=== PATIENT | female | born 1955 | race Caucasian/White ===

== ENCOUNTER 2016-06-11 10:55 | Emergency (ER) | payer MEDICAID ==
[~2016-06-11] VITALS: Ht 142.2 cm; Wt 50.3 kg
[~2016-06-11 10:55] MED LIST: ASPI81CT89 PO; ATOR40TA PO; BENA5TAB13 PO; METF1000 PO; ONDA4TAB PO
[2016-06-11 11:00] VITALS: BP 120/72
--- NOTE | 2016-06-11 11:40 | NUR ---
PATIENT PRESENTS TO ED WITH C/O LEFT ANKLE PAIN SINCE LAST NIGHT, PT. STATES SHE TWISTED ANKLE; DENIES N/V/D; SKIN IS PINK/WARM/DRY; AAOX4 WITH EVEN AND STEADY GAIT; LUNGS CLEAR BL; HR EVEN AND REGULAR; PT DENIES ANY FEVER, CP, SOB, OR COUGH AT THIS TIME; PATIENT STATES PAIN OF 8/10 AT THIS TIME; VSS; PATIENT POSITIONED FOR COMFORT; HOB ELEVATED; BEDRAILS UP X2; BED DOWN. ER MD MADE AWARE OF PT STATUS.
--- NOTE | 2016-06-11 11:40 | NUR ---
Patient to bed 06.
--- NOTE | 2016-06-11 12:52 | NUR ---
Dr. Reddy evaluating patient at bedside.
[2016-06-11] MEDS ORDERED: oxyCODONE/APAP 5/325 MG 1 TAB TAB PO ONE (13:00)
[2016-06-11] MEDS ORDERED: IBUPROFEN 600 MG TAB PO ONE (13:00)
--- NOTE | 2016-06-11 13:15 | NUR ---
PT TAKEN OFF THE UNIT TO XRAY VIA GURNEY BY ATIYA SUERO
--- NOTE | 2016-06-11 13:49 | NUR ---
DR LANGLEY NOTIFIED OF BLOOD SUGAR OF 148
[2016-06-11] MEDS ORDERED: HYDROmorphone 1 MG/ML AMP IM SCH (14:20)
[2016-06-11] MEDS ORDERED: ONDANSETRON 4 MG ODT PO SCH (14:20)
--- NOTE | 2016-06-11 16:45 | NUR ---
IRON POURER NOTIFIED OF NEED OF BACK BRACE FOR PT PER DR LANGLEY PRIOR TO DISCHARGE
[2016-06-11 17:10] VITALS: BP 118/71
--- NOTE | 2016-06-11 17:10 | NUR ---
PER OK TO DC WITHOUT IMOBILIZER, INSTRUCTED TO SEE ORTHO TOMORROW
--- NOTE | 2016-06-11 17:10 | NUR ---
Patient discharged with v/s stable. Written and verbal after care instructions given and explained. Patient alert, oriented and verbalized understanding of instructions. Wheel Chair Assisted with to car. All questions addressed prior to discharge. ID band removed. Patient advised to follow up with PMD. Rx of DILAUDID, ZOFRAN given. Patient educated on indication of medication including possible reaction and side effects. Opportunity to ask questions provided and answered.
== END 2016-06-11 17:10 | disposition home or self-care (01) ==
LOC: MED 10:55
PROC: 3E033GC Introduction of Other Therapeutic Substance into Peripheral Vein, Percutaneous Approach (ICD-10-PCS; principal; 2016-06-11)
DX: S93.492A Sprain of other ligament of left ankle, initial encounter (principal); M48.56XA Collapsed vertebra, not elsewhere classified, lumbar region, initial encounter for fracture; W18.30XA Fall on same level, unspecified, initial encounter; Y92.89 Other specified places as the place of occurrence of the external cause; E11.9 Type 2 diabetes mellitus without complications; I10 Essential (primary) hypertension
CPT/HCPCS: 72110; 73610; 73630; 82948; 96372; 99284; J1170; S0119

== ENCOUNTER 2016-08-02 09:33 | Emergency (ER) | payer MEDICAID ==
[~2016-08-02] VITALS: Ht 147.3 cm; Wt 53.5 kg
[2016-08-02 09:44] VITALS: BP 131/77
[2016-08-02 11:04] LABS: BILIRUBIN,URINE NEGATIVE (NEGATIVE); BLOOD, URINE NEGATIVE (NEGATIVE); COLOR,URINE YELLOW (YELLOW); LEUKOCYTE ESTERASE ,URINE NEGATIVE (NEGATIVE); NITRITE, URINE NEGATIVE (NEGATIVE); PH,URINE 5.5 (5.0-9.0); PROTEIN,URINE NEGATIVE (NEGATIVE); UGLUCOSE NEGATIVE (NEGATIVE); UROBILINOGEN,URINE 0.2 EU/dL (0.2 - 1)
[2016-08-02 11:11] LABS: APPEARANCE,URINE HAZY (CLEAR)
[2016-08-02 11:12] LABS: BACTERIA,URINE 1+ /HPF (None Seen); RBC,URINE NONE SEEN /HPF (0-5); SQUAMOUS EPITHELIAL CELL,UR None Seen /LPF (0-3 (FEW)); WBC,URINE 0-5 (RARE) /HPF (0-5)
[2016-08-02] MEDS ORDERED: FAMOTIDINE 20 MG TAB PO ONE (11:45)
[2016-08-02] MEDS ORDERED: CYCLOBENZAPRINE 10 MG TAB PO ONE (11:45)
[2016-08-02] MEDS ORDERED: ONDANSETRON 4 MG ODT PO ONE (11:45)
[2016-08-02] MEDS ORDERED: predniSONE 20 MG TAB PO ONE (11:45)
[2016-08-02] MEDS ORDERED: SULFAMETH/TRIMETH DS 800/160MG 1 TAB PO ONE (11:45)
[2016-08-02 13:40] VITALS: BP 101/62
== END 2016-08-02 13:40 | disposition home or self-care (01) ==
LOC: MED 09:33
DX: S32.029A Unspecified fracture of second lumbar vertebra, initial encounter for closed fracture (principal); T39.395A Adverse effect of other nonsteroidal anti-inflammatory drugs [NSAID], initial encounter; N39.0 Urinary tract infection, site not specified; E11.9 Type 2 diabetes mellitus without complications; I10 Essential (primary) hypertension; Z79.82 Long term (current) use of aspirin; X58.XXXA Exposure to other specified factors, initial encounter; Y93.89 Activity, other specified; Y92.89 Other specified places as the place of occurrence of the external cause; Y99.8 Other external cause status
CPT/HCPCS: 72131; 81001; 81025; 87086; 99285; J7512; Q0163; S0119

== ENCOUNTER 2016-12-22 12:30 | Emergency (ER) | payer MEDICAID ==
[~2016-12-22] VITALS: Ht 147.3 cm; Wt 50.9 kg
[2016-12-22 12:45] VITALS: BP 129/83
[2016-12-22] MEDS ORDERED: BRIM5SOL1 OP (13:02)
[2016-12-22] MEDS ORDERED: GEMF600T8 PO (13:02)
[2016-12-22] MEDS ORDERED: TRAM50TA1 PO (13:02)
[2016-12-22] MEDS ORDERED: DOCU-299 PO (13:02)
[2016-12-22] MEDS ORDERED: GLIP10TE PO (13:02)
[2016-12-22] MEDS ORDERED: SUCR1TAB35 PO (13:02)
[2016-12-22] MEDS ORDERED: PANT40EC PO (13:02)
[2016-12-22] MEDS ORDERED: LORA10OD44 PO (13:02)
[2016-12-22] MEDS ORDERED: GABA-636 PO (13:02)
[2016-12-22] MEDS ORDERED: TIM.5OS OP (13:02)
[2016-12-22 13:51] LABS: BASOPHILS # (AUTO) 0.1 K/uL (0.00-0.22); BASOPHILS % (AUTO) 1.5 % (0.0-2.0); EOSINOPHILS # (AUTO) 0.2 K/uL (0-0.4); EOSINOPHILS % (AUTO) 3.1 % (0.0-4.0); HEMATOCRIT 40.5 % (36-48); HEMOGLOBIN 13.2 g/dL (12.0-16.0); LYMPHOCYTES # (AUTO) 1.5 K/uL (2.5-16.5); LYMPHOCYTES % (AUTO) 24.6 % (20.5-51.1); MEAN CORPUSCULAR HEMOGLOBIN 31 pg (27-31); MEAN CORPUSCULAR HGB CONC 33 g/dL (33-37); MEAN CORPUSCULAR VOLUME 96 fL (80-94); MONOCYTES # (AUTO) 0.3 K/uL (0.8-1.0); MONOCYTES % (AUTO) 4.2 % (1.7-9.3); NEUTROPHILS # (AUTO) 4.2 K/uL (1.8-7.7); NEUTROPHILS % (AUTO) 66.6 % (42.2-75.2); PLATELET COUNT (AUTO) 353 K/uL (140-450); RED BLOOD CELL COUNT(AUTO) 4.24 MIL/uL (4.20-5.40); RED CELL DISTRIBUTION WIDTH 12.2 % (11.6-13.7); WHITE BLOOD COUNT (AUTO) 6.3 K/uL (4.8-10.8)
[2016-12-22 14:03] LABS: APPEARANCE,URINE CLEAR (CLEAR); BILIRUBIN,URINE NEGATIVE (NEGATIVE); BLOOD, URINE NEGATIVE (NEGATIVE); COLOR,URINE YELLOW (YELLOW); LEUKOCYTE ESTERASE ,URINE NEGATIVE (NEGATIVE); NITRITE, URINE NEGATIVE (NEGATIVE); UGLUCOSE 3+ (NEGATIVE)
[2016-12-22 14:06] LABS: ALBUMIN 4.4 g/dL (3.4-5.0); ANION GAP 12.8 (8-16); CARBON DIOXIDE 29.3 mmol/L (21-32); POTASSIUM 4.1 mmol/L (3.5-5.1); TOTAL BILIRUBIN 0.3 mg/dL (0.0-1.0)
[2016-12-22] MEDS ORDERED: KETOROLAC 60 MG/2 ML VIAL IM ONE (15:15)
--- NOTE | 2016-12-22 15:15 | NUR ---
61F BIB SELF WITH C/O 10/10 RIGHT LOWER ABDOMINAL PAIN RADIATING RIGHT FLANK PAIN X 1 MONTH WITH FREQUENCY, BURNING PAIN UPON VOIDING; PT ALSO C/O N/V; PT DENIES ANY BLODD IN EMESIS; PT ALSO C/O THROAT PAIN X 1 MONTH; PT HAS FULL CLEAR SPEECH, NO DROOLING; PT ALSO C/O BODYACHES, CHILLS; PT ALSO C/O DULL ACHY PAIN "ALL OVER BODY"; SKIN IS PINK/WARM/DRY; AOX4 WITH EVEN AND STEADY GAIT; LUNGS CLEAR BL;RR ARE EVEN AND UNLABORED; VSS; PATIENT POSITIONED FOR COMFORT; HOB ELEVATED; BED DOWN. ER MD GONZALEZ BY BEDSIDE EXAMINING PT; WILL CONTINUE TO MONITOR
--- NOTE | 2016-12-22 16:32 | NUR ---
PATIENT RESTING WITH EYES CLOSED IN [facility]; [place]; [place]
[2016-12-22 17:00] VITALS: BP 111/77
--- NOTE | 2016-12-22 17:00 | NUR ---
Patient discharged with v/s stable. Written and verbal after care instructions given and explained. Patient alert, oriented and verbalized understanding of instructions. Ambulatory with steady gait. All questions addressed prior to discharge. ID band removed. Patient advised to follow up with PMD. Rx of [place] 5 and Prednisone given. Patient educated on indication of medication including possible reaction and side effects. Opportunity to ask questions provided and answered.
== END 2016-12-22 17:00 | disposition home or self-care (01) ==
LOC: MED 12:30
DX: J02.9 Acute pharyngitis, unspecified (principal); M79.1 Myalgia; R50.9 Fever, unspecified; R07.9 Chest pain, unspecified; R42 Dizziness and giddiness; M25.569 Pain in unspecified knee
CPT/HCPCS: 36415; 74176; 80053; 81003; 82948; 83690; 85025; 96372; 99285; J1885

== ENCOUNTER 2017-05-08 13:52 | Emergency (ER) | payer MEDICAID ==
[~2017-05-08] VITALS: Ht 142.2 cm; Wt 52.2 kg
[~2017-05-08 13:52] MED LIST changes: -ASPI81CT89 PO; +BRIM5SOL1 OP; +DOCU-299 PO; +GABA-636 PO; +GEMF600T8 PO; +GLIP10TE PO; +LORA10OD44 PO; -METF1000 PO; +PANT40EC PO; +SUCR1TAB35 PO; +TIM.5OS OP; +TRAM50TA1 PO
[2017-05-08 14:06] VITALS: BP 118/73
--- NOTE | 2017-05-08 14:12 | NUR ---
PT AA&OX4 WITH EVEN AND STEADY GAIT; PT TO LOBBY AWAITING OPEN BED.
--- NOTE | 2017-05-08 14:30 | NUR ---
Patient discharged with v/s stable. Written and verbal after care instructions given and explained. Patient alert, oriented and verbalized understanding of instructions. Ambulatory with steady gait. All questions addressed prior to discharge. ID band removed. Patient advised to follow up with PMD. Rx of AUGMENTIN AND PROMETHAZINE given. Patient educated on indication of medication including possible reaction and side effects. Opportunity to ask questions provided and answered.
--- NOTE | 2017-05-08 14:30 | NUR ---
PT TAKEN TO CHAIR B
[2017-05-08 14:49] VITALS: BP 118/73
== END 2017-05-08 14:41 | disposition home or self-care (01) ==
LOC: MED 13:52
DX: J20.9 Acute bronchitis, unspecified (principal); E11.9 Type 2 diabetes mellitus without complications; I10 Essential (primary) hypertension; Z88.8 Allergy status to other drugs, medicaments and biological substances
CPT/HCPCS: 99283

== ENCOUNTER 2017-08-11 13:44 | Emergency (ER) | payer MEDICAID ==
[~2017-08-11] VITALS: Ht 144.8 cm; Wt 53.1 kg
[2017-08-11 13:52] VITALS: BP 120/70
[2017-08-11] MEDS ORDERED: HYDROcodone/APAP 10/325 MG 1 TAB TAB PO STA (16:09)
[2017-08-11 17:49] VITALS: BP 101/60
== END 2017-08-11 17:34 | disposition home or self-care (01) ==
LOC: MED 13:44
DX: M62.838 Other muscle spasm (principal); M47.22 Other spondylosis with radiculopathy, cervical region; E11.9 Type 2 diabetes mellitus without complications; I10 Essential (primary) hypertension; M79.602 Pain in left arm; Z79.899 Other long term (current) drug therapy; Z88.8 Allergy status to other drugs, medicaments and biological substances
CPT/HCPCS: 72125; 73030; 99284; Q0092

== ENCOUNTER 2017-09-07 12:19 | Emergency (ER) | payer MEDICAID ==
[~2017-09-07] VITALS: Ht 144.8 cm; Wt 53.1 kg
[2017-09-07 12:52] VITALS: BP 133/75
--- NOTE | 2017-09-07 12:56 | NUR ---
PT SENT TO ER LOBBY TO WAIT FOR X-RAY.
--- NOTE | 2017-09-07 13:09 | NUR ---
PT TAKEN TO X-RAY VIA W/C.
--- NOTE | 2017-09-07 14:10 | NUR ---
pt to bed 12 at this time.
--- NOTE | 2017-09-07 14:13 | NUR ---
62 YO F BIB SELF W/ C/O RIGHT FOOT PAIN THAT BEGAN 1 WEEK AGO BUT IS WORSE TODAY. DENIES INJURY OR TRAUMA. CMS INTACT OF ALL EXTREMITIES. ROM INTCACT. PT REPORTS IT FEELS LIKE HER FOOT IS ASLEEP. REPORTS IT WAS A SUDDEN ONSET OF PAIN. AAOX4. GCS 15. CMS INTACT. RR EVEN AND UNLABORED. LUNGS BILATERALLY CLEAR. AND SOFT, NON-TENDER. ER MD JAMES NOTIFIED. PT NEEDS MET. SAFETY PRECAUTIONS IN PLACE. WILL CONTINUE TO MONITOR.
[2017-09-07] MEDS ORDERED: ACETAMINOPHEN EXTRA STRENGTH 500 MG TAB PO ONE (16:10)
[2017-09-07] MEDS ORDERED: DEXAMETHASONE 10 MG/ML VIAL IM ONE (16:10)
[2017-09-07 17:06] VITALS: BP 120/80
--- NOTE | 2017-09-07 17:06 | NUR ---
Patient discharged with v/s stable. Written and verbal after care instructions given and explained. Patient alert, oriented and verbalized understanding of instructions. Patient wheel chair assisted to lobby. All questions addressed prior to discharge. ID band removed. Patient advised to follow up with PMD. X-ray report provided to patient for follow up. Rx of Gabapentin 300mg and Acetaminophen 500mg given. Patient educated on indication of medication including possible reaction and side effects. Opportunity to ask questions provided and answered.
== END 2017-09-07 17:06 | disposition home or self-care (01) ==
LOC: MED 12:19
DX: M77.9 Enthesopathy, unspecified (principal); M79.671 Pain in right foot; E11.9 Type 2 diabetes mellitus without complications; K21.9 Gastro-esophageal reflux disease without esophagitis; I10 Essential (primary) hypertension; Z79.84 Long term (current) use of oral hypoglycemic drugs; Z79.899 Other long term (current) drug therapy; Z88.8 Allergy status to other drugs, medicaments and biological substances
CPT/HCPCS: 73630; 96372; 99284; J1100

== ENCOUNTER 2017-11-14 13:14 | Emergency (ER) | payer MEDICAID ==
[~2017-11-14] VITALS: Ht 149.9 cm; Wt 47.6 kg
[2017-11-14 13:29] VITALS: BP 123/80
--- NOTE | 2017-11-14 13:33 | NUR ---
PT AMBULATES TO BED 7
--- NOTE | 2017-11-14 13:41 | NUR ---
Note undone in EDM - 11/14/17 at 1347 by RIOS PT BIB BY SELF. PATIENT PRESENTS TO ED WITH NECK PAIN . PT STATES PAIN STATED 1 MONTH AGO . DENIES N/V/D; SKIN IS PINK/WARM/DRY; AAOX4 WITH EVEN AND STEADY GAIT; LUNGS CLEAR BL; HR EVEN AND REGULAR; PT DENIES ANY FEVER, SOB, OR COUGH AT THIS TIME; PATIENT STATES PAIN OF 10/10 AT THIS TIME; VSS; PATIENT POSITIONED FOR COMFORT; HOB ELEVATED; BEDRAILS UP X2; BED DOWN. ER MADE AWARE OF PT STATUS.
--- NOTE | 2017-11-14 13:46 | NUR ---
PT BIB BY DAUGHTER, DAUGHTER JUST DROPPED HER OFF. PATIENT PRESENTS TO ED WITH NECK PAIN . PT STATES PAIN STATED 1 MONTH AGO . STATES NAUSEA AT THIS TIME; SKIN IS PINK/WARM/DRY; AAOX4 WITH EVEN AND STEADY GAIT; LUNGS CLEAR BL; HR EVEN AND REGULAR; PT DENIES ANY FEVER, SOB, OR COUGH AT THIS TIME; PATIENT STATES PAIN OF 10/10 AT THIS TIME; VSS; PATIENT POSITIONED FOR COMFORT; HOB ELEVATED; BEDRAILS UP X2; BED DOWN. PATIENT STATES HISTORY OF ARTHRITIS, OSTEOPOROSIS, FRIBROMYALGIA, AND BACK DISABILITY. ER MD MADE AWARE OF PT STATUS.
[2017-11-14] MEDS ORDERED: MORPHINE SULFATE 4 MG/ML SYR IM ONE (15:00)
[2017-11-14 15:13] VITALS: BP 131/80
== END 2017-11-14 15:13 | disposition home or self-care (01) ==
LOC: MED 13:14
DX: M54.2 Cervicalgia (principal); K21.9 Gastro-esophageal reflux disease without esophagitis; E11.9 Type 2 diabetes mellitus without complications; I10 Essential (primary) hypertension; Z88.8 Allergy status to other drugs, medicaments and biological substances; Z79.899 Other long term (current) drug therapy
CPT/HCPCS: 96372; 99283; J2270

== ENCOUNTER 2018-02-16 14:08 | Inpatient (IN) | payer MEDICAID ==
[~2018-02-16] VITALS: Ht 139.7 cm; Wt 54.0 kg
[~2018-02-16 14:08] MED LIST changes: -GEMF600T8 PO; +GEMF600T9 PO
--- NOTE | 2018-02-16 14:22 | NUR ---
Tayla rico in [facility] - 02/16/18 at 1423 by MEDHT PT AMBULATES TO BED 6
[2018-02-16 14:30] VITALS: BP 125/75
--- NOTE | 2018-02-16 14:36 | NUR ---
PT AMBULATED TO BED 10
--- NOTE | 2018-02-16 14:36 | NUR ---
AAO, GREEK SPEAKING ONLY PT C/O PAIN ON LT FLANK, LT KNEE, STUBBS AND A LITTLE DIZZINESS S/P MECHANICAL FALL FROM 5 STAIRS TODAY ONTO KNEES, NO LOC. DENIES OTHER COMPLAINTS. STATES IT WAS A MECHANICAL FALL. 12/03 PAIN. HX---HTN, DM, ARTHRITIS, HTN, OSTEOARTHRITIS
[2018-02-16] MEDS ORDERED: KETOROLAC 60 MG/2 ML VIAL IM ONE (15:15)
--- NOTE | 2018-02-16 15:25 | NUR ---
PT TAKEN OFF THE UNIT VIA WHEEL CHAIR FOR XRAY
[2018-02-16] MEDS ORDERED: NACL 0.9% 1,000 ML IV ONE (16:20)
[2018-02-16] MEDS ORDERED: MORPHINE SULFATE 4 MG/ML SYR IVP ONE ×2 (16:20→17:45)
[2018-02-16 16:36] LABS: BASOPHILS % (AUTO) 0.2 % (0.0-2.0); EOSINOPHILS # (AUTO) 0.2 K/uL (0-0.4); EOSINOPHILS % (AUTO) 3.9 % (0.0-4.0); HEMATOCRIT 38.4 % (36-48); HEMOGLOBIN 12.9 g/dL (12.0-16.0); LYMPHOCYTES # (AUTO) 2.2 K/uL (2.5-16.5); LYMPHOCYTES % (AUTO) 35.4 % (20.5-51.1); MEAN CORPUSCULAR HEMOGLOBIN 31 pg (27-31); MEAN CORPUSCULAR HGB CONC 34 g/dL (33-37); MEAN CORPUSCULAR VOLUME 93.3 fL (80-94); MONOCYTES # (AUTO) 0.4 K/uL (0.8-1.0); MONOCYTES % (AUTO) 6.2 % (1.7-9.3); NEUTROPHILS # (AUTO) 3.4 K/uL (1.8-7.7); NEUTROPHILS % (AUTO) 54.3 % (42.2-75.2); PLATELET COUNT (AUTO) 272 K/uL (140-450); RED BLOOD CELL COUNT(AUTO) 4.12 MIL/uL (4.20-5.40); RED CELL DISTRIBUTION WIDTH 14.8 % (11.6-13.7); WHITE BLOOD COUNT (AUTO) 6.3 K/uL (4.8-10.8)
--- NOTE | 2018-02-16 16:36 | NUR ---
PT TAKEN TO CT VIA MARICARMEN
[2018-02-16 16:48] LABS: ANION GAP 15.3 (8-16); CARBON DIOXIDE 26.5 mmol/L (21-32); POTASSIUM 3.8 mmol/L (3.5-5.1)
[2018-02-16 16:56] LABS: ALBUMIN 4.1 g/dL (3.4-5.0); TOTAL BILIRUBIN 0.3 mg/dL (0.0-1.0)
--- NOTE | 2018-02-16 17:13 | NUR ---
PT RETURNED FROM CT
--- NOTE | 2018-02-16 18:29 | NUR ---
pt wheel chair assisted to the restroom
--- NOTE | 2018-02-16 18:38 | NUR ---
aao pt wheel chair assisted back to bed 10; place back on monitor
[2018-02-16] MEDS ORDERED: ONDANSETRON 4 MG/2 ML VIAL IM/IVP PRN (18:55)
[2018-02-16] MEDS ORDERED: ACETAMINOPHEN 325 MG TAB PO PRN (18:55)
[2018-02-16] MEDS ORDERED: HYDROcodone/APAP 7.5/325 MG 1 TAB PO PRN (18:55)
[2018-02-16] MEDS ORDERED: CYCLOBENZAPRINE 10 MG TAB PO ONE (19:10)
[2018-02-16 19:25] VITALS: BP 119/86
--- NOTE | 2018-02-16 19:25 | NUR ---
PT ARRIVED ON UNIT BY WHEELCHAIR. RECEIVED REPORT FROM ER NURSE HIPOLITO-RN AT BEDSIDE. PT AOX4-LATVIAN SPEAKING, ON ROOM AIR WITH IV SITE ON LEFT AC #20G RUNNING NS @100ML/HR. S/P FALL 02/15- HAS BILATERAL REDNESS ON KNEES AND GONZALEZ. PT AMBULATORY WITH CANE AT BASELINE. DISCUSSED PLAN OF CARE AND PT VERBALIZED UNDERSTANDING. VITAL SIGNS TAKEN AND MRSA SWAB COLLECTED. BLOOD GLUCOSE 118-NO INSULIN COVERAGE NEEDED. NO S/S OF RESPIRATORY DISTRESS OR DISCOMFORT NOTED AT THIS TIME. BED IN LOWEST POSITION, BED BREAKS ON, BOTH SIDE RAILS UP AND FALL PRECAUTIONS IN PLACE. BEDSIDE TABLE AND CALL LIGHT ARE WITHIN REACH. WILL CONTINUE TO MONITOR.
--- NOTE | 2018-02-16 19:29 | NUR ---
Patient will be admitted to care of Dr Byrne. Admited to M/S room 107a. Belongings list completed. Report to REINA Schuler.
[2018-02-16] MEDS ORDERED: METF500T PO (19:34)
[2018-02-16 19:37] LABS: PROTHROMBIN TIME 9.4 secs (10.8-13.4)
[2018-02-16 19:40] LABS: APPEARANCE,URINE CLEAR (CLEAR); BILIRUBIN,URINE NEGATIVE (NEGATIVE); BLOOD, URINE NEGATIVE (NEGATIVE); COLOR,URINE YELLOW (YELLOW); LEUKOCYTE ESTERASE ,URINE NEGATIVE (NEGATIVE); NITRITE, URINE NEGATIVE (NEGATIVE); UGLUCOSE >=1000 (NEGATIVE)
[2018-02-16] MEDS: NACL 0.9% 1,000 ML IV SCH (19:40)
[2018-02-16] MEDS ORDERED: DEXTROSE 50% 50 ML SYR IVP PRN (19:45)
[2018-02-16] MEDS ORDERED: INSULIN LISPRO SLIDING SCALE 100 UNITS/ML VIAL SUBQ PRN (19:45)
[2018-02-16 19:48] LABS: FREE T4 (FREE THYROXINE) 1.01 ng/dL (0.76-1.46); MAGNESIUM 1.6 mg/dL (1.8-2.4); PHOSPHORUS 2.9 mg/dL (2.5-4.9); THYROID STIMULATING HORMONE 0.91 uIU/mL (0.34-3.74)
[2018-02-16] MEDS: GEMFIBROZIL 600 MG TAB PO SCH (20:20)
[2018-02-16] MEDS: BLOOD GLUCOSE MONITORING 1 DEV DEV FS SCH (20:21)
[2018-02-16] MEDS: metFORMIN 500 MG TAB PO SCH (20:21)
--- NOTE | 2018-02-16 20:21 | NUR ---
SCHEDULED MEDICATION GIVEN AND TOLERATED WELL. TIMOPTIC OP AND GLUCOTROL XI NOT GIVEN DUE TO NOT BEING AVAILABLE ON UNIT. CHARGE NURSE NOE AND DR. VALENZUELA AWARE. ULTRAM NOT GIVEN DUE TO D/C. PT STATED SHE TAKES TYLENOL WITH CODEINE- DR. VALENZUELA AWARE AND WILL PLACE ORDER FOR TYLENOL #3. NO S/S OF RESPIRATORY DISTRESS OR DISCOMFORT NOTED AT THIS TIME. WILL CONTINUE TO MONITOR.
[2018-02-16] MEDS ORDERED: ACET1TAB93 PO (20:25)
[2018-02-16] MEDS ORDERED: MAGNESIUM OXIDE 400 MG TAB PO ONE (20:45)
[2018-02-16] MEDS ORDERED: NON-FORMULARY ITEM (Brimonidine Tartrate* (Alphagan P 0.15% Opth Soln*) 1 DROP) OP SCH (21:00)
[2018-02-16] MEDS: glipiZIDE ER 5 MG TABER PO SCH (21:00)
[2018-02-16] MEDS ORDERED: ATORVASTATIN 20 MG TAB PO SCH (21:00)
[2018-02-16] MEDS ORDERED: traMADol 50 MG TAB PO SCH (21:00)
[2018-02-16] MEDS: TIMOLOL OP 0.5% 5 ML BTL OP SCH (21:00)
[2018-02-16] MEDS ORDERED: TIMOLOL OP 0.5% 5 ML BTL OP SCH (21:00)
[2018-02-16] MEDS: ACETAMINOPHEN/CODEINE 300/30MG 1 TAB PO PRN (21:36)
--- NOTE | 2018-02-16 21:36 | NUR ---
MAG-OX GIVEN FOR LOW MAGNESIUM LAB AND TYLENOL #3 GIVEN FOR PAIN. PT TOLERATED WELL. NO S/S OF RESPIRATORY DISTRESS OR DISCOMFORT NOTED AT THIS TIME. WILL CONTINUE TO MONITOR.
--- NOTE | 2018-02-16 23:00 | NUR ---
PT SLEEPING IN BED. NO S/S OF RESPIRATORY DISTRESS OR DISCOMFORT NOTED AT THIS TIME. WILL CONTINUE TO MONITOR.
[2018-02-16] MEDS ORDERED: INFLUENZA VIRUS VACCINE QUAD 0.5 ML SYR IMVAC PRN (23:40)
[2018-02-17] VITALS: BP 103/61
[2018-02-17] MEDS ORDERED: KETOROLAC 15 MG/ML VIAL IVP SCH
--- NOTE | 2018-02-17 | NUR ---
VITAL SIGNS TAKEN AND TOLERATED WELL. PT STATED HER PAIN LEVEL IS 7/10 AND WITHIN TOLERABLE LEVEL BECAUSE KPAD HAS HELPED RELIEVE HER PAIN ALONG WITH THE MEDICATION THAT WAS GIVEN. NO S/S OF RESPIRATORY DISTRESS OR DISCOMFORT NOTED AT THIS TIME. WILL CONTINUE TO MONITOR.
--- NOTE | 2018-02-17 02:00 | NUR ---
PT CONTINUES TO SLEEP IN BED. NO S/S OF RESPIRATORY DISTRESS OR DISCOMFORT NOTED AT THIS TIME. WILL CONTINUE TO MONITOR.
[2018-02-17] MEDS: NACL 0.9% 1,000 ML IV SCH (03:00)
--- NOTE | 2018-02-17 04:00 | NUR ---
PT CONTINUES TO SLEEP IN BED. NO S/S OF RESPIRATORY DISTRESS OR DISCOMFORT NOTED AT THIS TIME. WILL CONTINUE TO MONITOR.
[2018-02-17] MEDS: BLOOD GLUCOSE MONITORING 1 DEV DEV FS SCH ×4 (05:53→20:15)
--- NOTE | 2018-02-17 06:00 | NUR ---
PT RESTING IN BED. NO S/S OF RESPIRATORY DISTRESS OR DISCOMFORT NOTED AT THIS TIME. WILL CONTINUE TO MONITOR.
--- NOTE | 2018-02-17 06:00 | NUR ---
BLOOD GLUCOSE 144- NO INSULIN COVERAGE NEEDED. NO S/S OF RESPIRATORY DISTRESS OR DISCOMFORT NOTED AT THIS TIME. WILL CONTINUE TO MONITOR.
--- NOTE | 2018-02-17 07:24 | NUR ---
ENDORSED PT CARE TO DAY SHIFT NURSE MARIELLA FOR CONTINUITY OF CARE.
--- NOTE | 2018-02-17 07:40 | NUR ---
PATIENT WAS AWAKE, ALERT. RESPIRATION EVEN, UNLABOR ON ROOM AIR. SKIN DRY AND WARM. IV PATENT AND INTACT. COMPLAINED OF NECK PAIN 5/10. PLAN OF CARE WAS DISCUSSED WITH PATIENT. BED AT LOW POSITION, SIDE RAILS UP. CALL LIGHT WITHIN REACH
[2018-02-17 07:55] LABS: BASOPHILS % (AUTO) 0.7 % (0.0-2.0); EOSINOPHILS # (AUTO) 0.3 K/uL (0-0.4); EOSINOPHILS % (AUTO) 5.3 % (0.0-4.0); HEMATOCRIT 34.9 % (36-48); HEMOGLOBIN 11.5 g/dL (12.0-16.0); LYMPHOCYTES % (AUTO) 39.8 % (20.5-51.1); MEAN CORPUSCULAR HEMOGLOBIN 31 pg (27-31); MEAN CORPUSCULAR HGB CONC 33 g/dL (33-37); MEAN CORPUSCULAR VOLUME 94.5 fL (80-94); MONOCYTES # (AUTO) 0.4 K/uL (0.8-1.0); MONOCYTES % (AUTO) 7.1 % (1.7-9.3); NEUTROPHILS # (AUTO) 2.4 K/uL (1.8-7.7); NEUTROPHILS % (AUTO) 47.1 % (42.2-75.2); PLATELET COUNT (AUTO) 235 K/uL (140-450); RED BLOOD CELL COUNT(AUTO) 3.69 MIL/uL (4.20-5.40); RED CELL DISTRIBUTION WIDTH 14.8 % (11.6-13.7); WHITE BLOOD COUNT (AUTO) 5.1 K/uL (4.8-10.8)
[2018-02-17 08:00] VITALS: BP 123/71
[2018-02-17 08:12] LABS: ANION GAP 11.9 (8-16); CARBON DIOXIDE 25.1 mmol/L (21-32)
[2018-02-17 08:23] LABS: MAGNESIUM 1.6 mg/dL (1.8-2.4); PHOSPHORUS 4.2 mg/dL (2.5-4.9)
[2018-02-17 08:33] LABS: CHOL/HDL RATIO 4.8 (1-4.5)
[2018-02-17] MEDS: TIMOLOL OP 0.5% 5 ML BTL OP SCH ×2 (08:53→20:16)
[2018-02-17] MEDS: glipiZIDE ER 5 MG TABER PO SCH ×2 (08:54→20:18)
[2018-02-17] MEDS: BENAZEPRIL 5 MG TAB PO SCH (08:54)
[2018-02-17] MEDS: SUCRALFATE 1 GM TAB PO SCH (08:54)
[2018-02-17] MEDS: GABAPENTIN 100 MG CAP PO SCH ×3 (08:54→20:17)
[2018-02-17] MEDS: DOCUSATE SODIUM 100 MG GELCAP PO SCH (08:54)
[2018-02-17] MEDS: metFORMIN 500 MG TAB PO SCH ×2 (08:55→20:21)
[2018-02-17] MEDS: ACETAMINOPHEN/CODEINE 300/30MG 1 TAB PO PRN (08:55)
[2018-02-17] MEDS: GEMFIBROZIL 600 MG TAB PO SCH ×2 (08:55→20:17)
[2018-02-17] MEDS: CYCLOBENZAPRINE 10 MG TAB PO SCH ×3 (08:55→17:02)
[2018-02-17] MEDS: PANTOPRAZOLE 40 MG TABEC PO SCH (08:55)
[2018-02-17] MEDS: LORATADINE 10 MG TAB PO SCH (08:56)
[2018-02-17] MEDS ORDERED: MECLIZINE 25 MG TAB PO PRN (10:10)
[2018-02-17] MEDS ORDERED: MAGNESIUM OXIDE 400 MG TAB PO SCH (10:30)
--- NOTE | 2018-02-17 10:30 | NUR ---
PATIENT WAS AWAKE, ALERT. RESPIRATION EVEN, UNLABOR ON ROOM AIR. PATIENT AMBULATED TO BATHROOM WITH STEADY GAIT. NO DISTRESS NOTED AT THIS TIME
--- NOTE | 2018-02-17 12:30 | NUR ---
PATIENT AWAKE, ALERT. RESPIRATION EVEN, UNLABOR ON ROOM AIR. COMPLAINED OF NECKED PAIN 10/02, MED WAS GIVEN PER ORDER. NO DISTRESS NOTED AT THIS TIME. FAMILY AT BEDSIDE. CALL LIGHT WITHIN REACH
--- NOTE | 2018-02-17 14:16 | NUR ---
PATIENT WAS SLEEPING COMFORTABLY. RESPIRATION EVEN, UNLABOR ON ROOM AIR. NO DISTRESS NOTED AT THIS TIME
[2018-02-17 16:00] VITALS: BP 108/69
--- NOTE | 2018-02-17 16:00 | NUR ---
PATIENT WAS SLEEPING COMFORTABLY, EASILY AROUSABLE BY NAME. RESPIRATION EVEN, UNLABOR ON ROOM AIR. DENIED PAIN AT THIS TIME. NO DISTRESS NOTED. CALL LIGHT WITHIN REACH
[2018-02-17] MEDS ORDERED: traZODone 50 MG TAB PO PRN (16:10)
--- NOTE | 2018-02-17 18:49 | NUR ---
PATIENT AWAKE, ALERT. RESPIRATION EVEN, UNLABOR ON ROOM AIR. IV PATENT AND INTACT. NO DISTRESS NOTED AT THIS TIME
--- NOTE | 2018-02-17 19:18 | NUR ---
ENDORSEMENT GIVEN TO RADIATION SAFETY OFFICER NURSE. PATIENT IS STABLE AT THIS TIME
--- NOTE | 2018-02-17 19:19 | NUR ---
RECEIVED PT IN STABLE CONDITION FROM AM NURSE. AWAKE,ALERT AND ORIENTED X4. MED SURG PT. WITH NO C/O ANY DISCOMFORT NOR PAIN NOTED AT THIS TIME. HAS IVF INFUSING WELL ON THE LT AC#20 .CLEAR AND PATENT. PLAN OF CARE DISCUSSED AND VERBALIZED UNDERSTANDING. K PAD TO LOWER BACK ON. BED ON LOWEST POSITION. FREQUENT ROUNDS NEEDED. CALL LIGHT PLACED WITHIN EASY REACH. WILL CONTINUE TO MONITOR.
--- NOTE | 2018-02-17 20:15 | NUR ---
BLOOD SUGAR WAS CHECKED RESULT 114. NO INSULIN NEEDED. PROVIDED WITH SOME SNACK. TOLERATED WELL. WILL CONTINUE TO MONITOR.
[2018-02-17] MEDS ORDERED: AMITRIPTYLINE 10 MG TAB PO SCH (21:00)
--- NOTE | 2018-02-17 22:00 | NUR ---
MADE ROUNDS. PT IS ASLEEP. NO S/S OF ANY DISCOMFORT NOTED.
[2018-02-18 00:05] VITALS: BP 135/74
--- NOTE | 2018-02-18 00:30 | NUR ---
PT IS ASLEEP. NO S/S OF ANY PAIN NOR NAY DISCOMFORT NOTED. WILL CONTINUE TO MONITOR.
--- NOTE | 2018-02-18 02:30 | NUR ---
PT ASLEEP. NO DISCOMFORT NOTED.
[2018-02-18] MEDS: NACL 0.9% 1,000 ML IV SCH (03:33)
[2018-02-18] MEDS: BLOOD GLUCOSE MONITORING 1 DEV DEV FS SCH ×2 (06:05→11:23)
--- NOTE | 2018-02-18 06:05 | NUR ---
BLOOD SUGAR WAS CHECKED RESULT 80. PT ASKED FOR SOME JUICE AND CRACKERS.
[2018-02-18 07:08] LABS: BASOPHILS % (AUTO) 0.5 % (0.0-2.0); EOSINOPHILS # (AUTO) 0.3 K/uL (0-0.4); EOSINOPHILS % (AUTO) 6.4 % (0.0-4.0); HEMATOCRIT 36.5 % (36-48); LYMPHOCYTES # (AUTO) 2.2 K/uL (2.5-16.5); LYMPHOCYTES % (AUTO) 46.6 % (20.5-51.1); MEAN CORPUSCULAR HEMOGLOBIN 31 pg (27-31); MEAN CORPUSCULAR HGB CONC 33 g/dL (33-37); MEAN CORPUSCULAR VOLUME 94.7 fL (80-94); MONOCYTES # (AUTO) 0.3 K/uL (0.8-1.0); MONOCYTES % (AUTO) 6.5 % (1.7-9.3); NEUTROPHILS # (AUTO) 1.9 K/uL (1.8-7.7); PLATELET COUNT (AUTO) 251 K/uL (140-450); RED BLOOD CELL COUNT(AUTO) 3.85 MIL/uL (4.20-5.40); RED CELL DISTRIBUTION WIDTH 14.7 % (11.6-13.7); WHITE BLOOD COUNT (AUTO) 4.8 K/uL (4.8-10.8)
--- NOTE | 2018-02-18 07:15 | NUR ---
RECEIVED PT REPORT FROM SQL SSRS DEVELOPER NURSE. PT IS ALERT AND AWAKE IN BED, NO S/S OF DISTRESS NOTED, NO C/O PAIN. PT IS ON ROOM AIR, SKIN INTACT. IV SITE NOTED ON L AC, 20 GAUGE. NS INFUSING AT 40 ML/HR. FALL PRECAUTIONS IN PLACE. CALL LIGHT WITHIN REACH, BED LOW. WILL CONTINUE TO MONITOR.
[2018-02-18 07:50] LABS: MAGNESIUM 1.7 mg/dL (1.8-2.4); PHOSPHORUS 4.2 mg/dL (2.5-4.9)
--- NOTE | 2018-02-18 07:52 | NUR ---
ENDORSED PT IN STABLE CONDITION TO AM NURSE.
[2018-02-18 08:00] VITALS: BP 151/89
[2018-02-18] MEDS ORDERED: AMIT10TA25 PO (08:22)
[2018-02-18] MEDS ORDERED: GABA-636 PO (08:22)
[2018-02-18] MEDS ORDERED: CYCL-654 PO (08:22)
[2018-02-18] MEDS ORDERED: MAGNESIUM OXIDE 400 MG TAB PO SCH (09:00)
[2018-02-18] MEDS ORDERED: SERTRALINE 50 MG TAB PO SCH (09:00)
--- NOTE | 2018-02-18 09:21 | NUR ---
PATIENT HAS BEEN SCREENED AND CATEGORIZED MODERATE NUTRITION RISK. PATIENT WILL BE SEEN WITHIN 3-5 DAYS OF ADMISSION. 02/19/18 02/21/[address]
[2018-02-18] MEDS: SUCRALFATE 1 GM TAB PO SCH (09:28)
[2018-02-18] MEDS: BENAZEPRIL 5 MG TAB PO SCH (09:28)
[2018-02-18] MEDS: PANTOPRAZOLE 40 MG TABEC PO SCH (09:28)
[2018-02-18] MEDS: GEMFIBROZIL 600 MG TAB PO SCH (09:28)
[2018-02-18] MEDS: metFORMIN 500 MG TAB PO SCH (09:29)
[2018-02-18] MEDS: LORATADINE 10 MG TAB PO SCH (09:29)
[2018-02-18] MEDS: CYCLOBENZAPRINE 10 MG TAB PO SCH (09:29)
[2018-02-18] MEDS: DOCUSATE SODIUM 100 MG GELCAP PO SCH (09:29)
[2018-02-18] MEDS: GABAPENTIN 100 MG CAP PO SCH (09:29)
[2018-02-18] MEDS: glipiZIDE ER 5 MG TABER PO SCH (09:30)
[2018-02-18] MEDS: TIMOLOL OP 0.5% 5 ML BTL OP SCH (09:31)
[2018-02-18 10:09] LABS: POTASSIUM 4.9 mmol/L (3.5-5.1)
[2018-02-18 10:10] LABS: ANION GAP 16.2 (8-16); CARBON DIOXIDE 24.7 mmol/L (21-32); CREATININE 0.9 mg/dL (0.6-1.3)
--- NOTE | 2018-02-18 14:00 | NUR ---
PT HAS DISCHARGED. DISCHARGE INSTRUCTION AND PRESCRIPTION GIVEN, PT VERBALIZED UNDERSTANDING. DISCHARGE SIGNATURES OBTAINED. IV SITE DC'D, WRIST BANDS REMOVED. DE REFUSED FLU VACCINE. PT LEFT WITH ALL HER BELONGINGS IN A STABLE CONDITION.
[2018-02-18] MEDS ORDERED: glipiZIDE 10 MG TAB PO SCH (16:30)
[2018-02-19 06:25] LABS: T4 (THYROXINE) 7.6 ug/dL (4.5-12.0)
== END 2018-02-18 14:00 | disposition home or self-care (01) | DRG 351 ==
LOC: MED 14:08 → MTU 18:53
PROVIDERS: ADMIT General Practice; ATTEND General Practice
DX: M79.7 Fibromyalgia (principal); E11.40 Type 2 diabetes mellitus with diabetic neuropathy, unspecified; M62.838 Other muscle spasm; E11.65 Type 2 diabetes mellitus with hyperglycemia; E83.42 Hypomagnesemia; K21.9 Gastro-esophageal reflux disease without esophagitis; H40.9 Unspecified glaucoma; I10 Essential (primary) hypertension; Z88.8 Allergy status to other drugs, medicaments and biological substances; M19.90 Unspecified osteoarthritis, unspecified site; M81.0 Age-related osteoporosis without current pathological fracture; F32.9 Major depressive disorder, single episode, unspecified; Z98.41 Cataract extraction status, right eye; Z60.2 Problems related to living alone; E78.5 Hyperlipidemia, unspecified; J30.9 Allergic rhinitis, unspecified; G89.29 Other chronic pain
CPT/HCPCS: 36415; 71250; 72110; 72125; 80048; 80053; 81003; 82150; 82948; 83036; 83690; 83735; 83880; 84100; 84436; 84439; 84443; 84479; 84484; 85025; 85610; 85730; 87081; 93005; 96361; 96372; 96374; 96376; 99285; J1815; J1885; J2270; J7030

== ENCOUNTER 2018-04-08 10:37 | Emergency (ER) | payer MEDICAID ==
[~2018-04-08] VITALS: Ht 152.4 cm; Wt 53.1 kg
[~2018-04-08 10:37] MED LIST changes: +ACET1TAB93 PO; +AMIT10TA25 PO; -ATOR40TA PO; +CYCL-654 PO; +GEMF-65 PO; -GEMF600T9 PO; +METF500T PO; -TRAM50TA1 PO
[2018-04-08 10:45] VITALS: BP 117/69
[2018-04-08] MEDS: KETOROLAC 60 MG/2 ML VIAL IM ONE (11:42)
[2018-04-08 12:21] VITALS: BP 108/56
== END 2018-04-08 12:21 | disposition home or self-care (01) ==
LOC: MED 10:37
DX: J02.9 Acute pharyngitis, unspecified (principal); R05 Cough; E11.9 Type 2 diabetes mellitus without complications; K21.9 Gastro-esophageal reflux disease without esophagitis; I10 Essential (primary) hypertension; Z79.84 Long term (current) use of oral hypoglycemic drugs; Z79.899 Other long term (current) drug therapy; Z79.891 Long term (current) use of opiate analgesic; Z88.6 Allergy status to analgesic agent
CPT/HCPCS: 96372; 99283; J1885

== ENCOUNTER 2018-05-22 12:54 | Emergency (ER) | payer MEDICAID ==
[~2018-05-22] VITALS: Ht 137.2 cm; Wt 52.8 kg
[2018-05-22 13:58] VITALS: BP 98/70
--- NOTE | 2018-05-22 17:00 | NUR ---
PATIENT LEFT WITHOUT BEING SEEN BY DR. Staley. NO FURTHER CARE PROVIDED FOR PATIENT.
--- NOTE | 2018-05-22 17:14 | NUR ---
2ND ATTEMPT CALLING PT IN THE LOBBY WITH NO RESPONSE.
== END 2018-05-22 17:00 | disposition left against medical advice (07) ==
LOC: MED 12:54
DX: M79.10 Myalgia, unspecified site (principal); Z53.21 Procedure and treatment not carried out due to patient leaving prior to being seen by health care provider

== ENCOUNTER 2018-12-18 15:28 | Inpatient (IN) | payer MEDICAID ==
[~2018-12-18] VITALS: Ht 147.3 cm; Wt 54.4 kg
[2018-12-18 15:45] VITALS: BP 115/75
[2018-12-18] MEDS ORDERED: ONDANSETRON 4 MG/2 ML VIAL IVP ONE (16:10)
[2018-12-18] MEDS ORDERED: KETOROLAC 30 MG/ML VIAL IVP ONE (16:10)
[2018-12-18 16:44] LABS: APPEARANCE,URINE CLEAR (CLEAR); BILIRUBIN,URINE NEGATIVE (NEGATIVE); BLOOD, URINE NEGATIVE (NEGATIVE); COLOR,URINE YELLOW (YELLOW); LEUKOCYTE ESTERASE ,URINE 1+ (NEGATIVE); NITRITE, URINE NEGATIVE (NEGATIVE); UGLUCOSE NEGATIVE (NEGATIVE)
[2018-12-18 16:49] LABS: BASOPHILS # (AUTO) 0.1 K/uL (0.00-0.22); EOSINOPHILS # (AUTO) 0.3 K/uL (0-0.4); EOSINOPHILS % (AUTO) 3.7 % (0.0-4.0); HEMATOCRIT 39.3 % (36-48); HEMOGLOBIN 12.9 g/dL (12.0-16.0); LYMPHOCYTES # (AUTO) 2.8 K/uL (2.5-16.5); LYMPHOCYTES % (AUTO) 35.9 % (20.5-51.1); MEAN CORPUSCULAR HEMOGLOBIN 31 pg (27-31); MEAN CORPUSCULAR HGB CONC 33 g/dL (33-37); MEAN CORPUSCULAR VOLUME 95.7 fL (80-94); MONOCYTES # (AUTO) 0.4 K/uL (0.8-1.0); MONOCYTES % (AUTO) 5.8 % (1.7-9.3); NEUTROPHILS # (AUTO) 4.1 K/uL (1.8-7.7); NEUTROPHILS % (AUTO) 53.6 % (42.2-75.2); PLATELET COUNT (AUTO) 330 K/uL (140-450); RED BLOOD CELL COUNT(AUTO) 4.11 MIL/uL (4.20-5.40); WHITE BLOOD COUNT (AUTO) 7.7 K/uL (4.8-10.8)
[2018-12-18 16:55] LABS: RBC,URINE NONE SEEN /HPF (0-5)
[2018-12-18 16:56] LABS: WBC,URINE 20-60 /HPF (0-5)
[2018-12-18 17:00] LABS: ANION GAP 15.1 (8-16); CARBON DIOXIDE 25.9 mmol/L (21-32)
[2018-12-18 17:06] LABS: ALBUMIN 4.6 g/dL (3.4-5.0); TOTAL BILIRUBIN 0.3 mg/dL (0.0-1.0)
[2018-12-18] MEDS ORDERED: ACETAMINOPHEN 325 MG TAB PO PRN (19:05)
[2018-12-18] MEDS ORDERED: HYDROmorphone PFS 2 MG/ML SYR IVP ONE (19:15)
[2018-12-18] MEDS ORDERED: NACL 0.9% 1,000 ML IV ONE (19:15)
[2018-12-18 20:16] VITALS: BP 129/74
[2018-12-18 20:59] LABS: BARBITURATE, URINE NEG. ng/ml (NEG <=200); BENZODIAZEPINE, URINE NEG. ng/mL (NEG <=200); CANNABINOID, URINE NEG. ng/mL (NEG <=50); COCAINE, URINE NEG. ng/mL (NEG <=300); OPIATE, URINE POS. ng/mL (NEG <=2000); PHENCYCLIDINE SCREEN,URINE NEG. ng/mL (NEG <=25)
[2018-12-18 21:08] LABS: FREE T4 (FREE THYROXINE) 1.03 ng/dL (0.76-1.46); MAGNESIUM 1.4 mg/dL (1.8-2.4); PHOSPHORUS 3.4 mg/dL (2.5-4.9); THYROID STIMULATING HORMONE 2.04 uIU/mL (0.34-3.74)
[2018-12-18] MEDS: HYDROcodone/APAP 7.5/325 MG 1 TAB PO PRN (21:11)
[2018-12-18] MEDS: DOCUSATE SODIUM 100 MG GELCAP PO SCH (21:23)
[2018-12-19] MEDS ORDERED: MAG SULF 2000 MG/WATER PREMIX 50 ML IV SCH (00:30)
[2018-12-19] MEDS ORDERED: cefTRIAXone 1,000 MG VIAL ONE (01:19)
[2018-12-19] MEDS: NACL 0.9% 1,000 ML IV SCH ×3 (01:29→14:20)
[2018-12-19] MEDS: HYDROcodone/APAP 7.5/325 MG 1 TAB PO PRN ×3 (07:13→19:52)
[2018-12-19 08:00] VITALS: BP 128/75
[2018-12-19 08:18] LABS: BASOPHILS % (AUTO) 0.6 % (0.0-2.0); EOSINOPHILS # (AUTO) 0.2 K/uL (0-0.4); HEMATOCRIT 34.6 % (36-48); HEMOGLOBIN 11.2 g/dL (12.0-16.0); LYMPHOCYTES # (AUTO) 2.2 K/uL (2.5-16.5); LYMPHOCYTES % (AUTO) 27.6 % (20.5-51.1); MEAN CORPUSCULAR HEMOGLOBIN 31 pg (27-31); MEAN CORPUSCULAR HGB CONC 32 g/dL (33-37); MEAN CORPUSCULAR VOLUME 97.2 fL (80-94); MONOCYTES # (AUTO) 0.4 K/uL (0.8-1.0); MONOCYTES % (AUTO) 5.6 % (1.7-9.3); NEUTROPHILS % (AUTO) 63.2 % (42.2-75.2); PLATELET COUNT (AUTO) 270 K/uL (140-450); RED BLOOD CELL COUNT(AUTO) 3.56 MIL/uL (4.20-5.40)
[2018-12-19 08:53] LABS: ANION GAP 13.4 (8-16); CARBON DIOXIDE 24.5 mmol/L (21-32); CREATININE 0.8 mg/dL (0.6-1.3); POTASSIUM 3.9 mmol/L (3.5-5.1)
[2018-12-19] MEDS ORDERED: metFORMIN 500 MG TAB PO SCH ×2 (09:00→11:51)
[2018-12-19] MEDS ORDERED: glipiZIDE ER 5 MG TABER PO SCH (09:00)
[2018-12-19] MEDS ORDERED: ACETAMINOPHEN/CODEINE 300/30MG 1 TAB PO SCH (09:00)
[2018-12-19 09:08] LABS: MAGNESIUM 2.1 mg/dL (1.8-2.4); PHOSPHORUS 3.5 mg/dL (2.5-4.9)
[2018-12-19] MEDS: DOCUSATE SODIUM 100 MG GELCAP PO SCH ×2 (09:09→21:03)
[2018-12-19 09:13] LABS: CHOL/HDL RATIO 4.2 (1-4.5)
[2018-12-19] MEDS: BENAZEPRIL 5 MG TAB PO SCH (09:21)
[2018-12-19] MEDS ORDERED: DEXTROSE 50% 50 ML SYR IVP PRN (14:50)
[2018-12-19] MEDS ORDERED: INSULIN LISPRO SLIDING SCALE 100 UNITS/ML VIAL SUBQ PRN (14:50)
[2018-12-19 16:00] VITALS: BP 104/71
[2018-12-19] MEDS: DEXT 5% /NACL 0.9% 1,000 ML IV SCH ×2 (16:10→22:58)
[2018-12-19] MEDS: BLOOD GLUCOSE MONITORING 1 DEV DEV FS SCH ×2 (16:10→21:01)
[2018-12-19] MEDS: MORPHINE SULFATE 2 MG/ML SYR IVP PRN (17:16)
[2018-12-19] MEDS: ONDANSETRON 4 MG/2 ML VIAL IVP PRN (17:16)
[2018-12-19 20:00] VITALS: BP 126/60
[2018-12-20] MEDS: HYDROcodone/APAP 7.5/325 MG 1 TAB PO PRN (03:32)
[2018-12-20] MEDS: ONDANSETRON 4 MG/2 ML VIAL IVP PRN ×2 (03:34→08:16)
[2018-12-20] MEDS: BLOOD GLUCOSE MONITORING 1 DEV DEV FS SCH ×4 (05:36→20:26)
[2018-12-20 07:04] LABS: ANION GAP 16.9 (8-16); BASOPHILS # (AUTO) 0.1 K/uL (0.00-0.22); BASOPHILS % (AUTO) 1.2 % (0.0-2.0); CARBON DIOXIDE 22.9 mmol/L (21-32); CREATININE 0.8 mg/dL (0.6-1.3); EOSINOPHILS # (AUTO) 0.3 K/uL (0-0.4); EOSINOPHILS % (AUTO) 5.3 % (0.0-4.0); HEMATOCRIT 34.1 % (36-48); HEMOGLOBIN 11.5 g/dL (12.0-16.0); LYMPHOCYTES # (AUTO) 1.9 K/uL (2.5-16.5); LYMPHOCYTES % (AUTO) 36.7 % (20.5-51.1); MEAN CORPUSCULAR HEMOGLOBIN 32 pg (27-31); MEAN CORPUSCULAR HGB CONC 34 g/dL (33-37); MEAN CORPUSCULAR VOLUME 95.3 fL (80-94); MONOCYTES # (AUTO) 0.3 K/uL (0.8-1.0); MONOCYTES % (AUTO) 5.6 % (1.7-9.3); NEUTROPHILS # (AUTO) 2.6 K/uL (1.8-7.7); NEUTROPHILS % (AUTO) 51.2 % (42.2-75.2); PLATELET COUNT (AUTO) 346 K/uL (140-450); POTASSIUM 3.8 mmol/L (3.5-5.1); RED BLOOD CELL COUNT(AUTO) 3.58 MIL/uL (4.20-5.40); WHITE BLOOD COUNT (AUTO) 5.1 K/uL (4.8-10.8)
[2018-12-20 07:17] LABS: MAGNESIUM 1.8 mg/dL (1.8-2.4); PHOSPHORUS 2.8 mg/dL (2.5-4.9)
[2018-12-20 08:00] VITALS: BP 136/75
[2018-12-20] MEDS: MORPHINE SULFATE 2 MG/ML SYR IVP PRN ×2 (08:16→13:23)
[2018-12-20] MEDS: BENAZEPRIL 5 MG TAB PO SCH (09:00)
[2018-12-20] MEDS: DOCUSATE SODIUM 100 MG GELCAP PO SCH ×2 (09:00→20:20)
[2018-12-20] MEDS ORDERED: METOCLOPRAMIDE 10 MG/2 ML INJ VIAL IVP SCH (12:00)
[2018-12-20] MEDS: DEXT 5% /NACL 0.9% 1,000 ML IV SCH (13:25)
[2018-12-20 16:00] VITALS: BP 126/72
[2018-12-20] MEDS: LACTATED RINGERS 1,000 ML IV SCH (18:26)
[2018-12-20] MEDS: AMITRIPTYLINE 10 MG TAB PO SCH (20:20)
[2018-12-21] VITALS: BP 106/70
[2018-12-21 00:11] LABS: LACTATE DEHYDROGENASE 172 IU/L (119-226)
[2018-12-21] MEDS: LACTATED RINGERS 1,000 ML IV SCH ×2 (04:10→13:15)
[2018-12-21] MEDS: BLOOD GLUCOSE MONITORING 1 DEV DEV FS SCH ×4 (06:14→20:09)
[2018-12-21 07:31] LABS: ANION GAP 15.4 (8-16); CARBON DIOXIDE 24.2 mmol/L (21-32); CREATININE 0.7 mg/dL (0.6-1.3); POTASSIUM 4.6 mmol/L (3.5-5.1)
[2018-12-21 07:33] LABS: MAGNESIUM 1.6 mg/dL (1.8-2.4)
[2018-12-21 08:00] VITALS: BP 132/63
[2018-12-21 08:20] LABS: EOSINOPHILS # (AUTO) 0.3 K/uL (0-0.4); EOSINOPHILS % (AUTO) 5.4 % (0.0-4.0); HEMATOCRIT 36.6 % (36-48); LYMPHOCYTES # (AUTO) 1.7 K/uL (2.5-16.5); LYMPHOCYTES % (AUTO) 34.7 % (20.5-51.1); MEAN CORPUSCULAR HEMOGLOBIN 31 pg (27-31); MEAN CORPUSCULAR HGB CONC 33 g/dL (33-37); MEAN CORPUSCULAR VOLUME 94.9 fL (80-94); MONOCYTES # (AUTO) 0.3 K/uL (0.8-1.0); MONOCYTES % (AUTO) 7.3 % (1.7-9.3); NEUTROPHILS # (AUTO) 2.5 K/uL (1.8-7.7); NEUTROPHILS % (AUTO) 51.6 % (42.2-75.2); PLATELET COUNT (AUTO) 298 K/uL (140-450); RED BLOOD CELL COUNT(AUTO) 3.86 MIL/uL (4.20-5.40); RED CELL DISTRIBUTION WIDTH 12.7 % (11.6-13.7); WHITE BLOOD COUNT (AUTO) 4.8 K/uL (4.8-10.8)
[2018-12-21] MEDS: BENAZEPRIL 5 MG TAB PO SCH (08:36)
[2018-12-21] MEDS: DOCUSATE SODIUM 100 MG GELCAP PO SCH ×2 (08:36→20:29)
[2018-12-21] MEDS: SENNA 8.6 MG TAB PO SCH ×3 (08:37→16:50)
[2018-12-21] MEDS ORDERED: MAG SULF 2000 MG/WATER PREMIX 50 ML IV SCH (15:00)
[2018-12-21 16:34] VITALS: BP 165/72
[2018-12-21] MEDS: AMITRIPTYLINE 10 MG TAB PO SCH (20:29)
[2018-12-22] VITALS: BP 134/70
[2018-12-22] MEDS: LACTATED RINGERS 1,000 ML IV SCH ×2 (00:16→09:15)
[2018-12-22] MEDS: HYDROcodone/APAP 7.5/325 MG 1 TAB PO PRN (00:18)
[2018-12-22] MEDS: BLOOD GLUCOSE MONITORING 1 DEV DEV FS SCH (06:10)
[2018-12-22 07:04] LABS: BASOPHILS # (AUTO) 0.1 K/uL (0.00-0.22); BASOPHILS % (AUTO) 1.1 % (0.0-2.0); EOSINOPHILS # (AUTO) 0.3 K/uL (0-0.4); EOSINOPHILS % (AUTO) 5.5 % (0.0-4.0); HEMATOCRIT 36.1 % (36-48); HEMOGLOBIN 11.9 g/dL (12.0-16.0); LYMPHOCYTES # (AUTO) 2.1 K/uL (2.5-16.5); MEAN CORPUSCULAR HEMOGLOBIN 31 pg (27-31); MEAN CORPUSCULAR HGB CONC 33 g/dL (33-37); MEAN CORPUSCULAR VOLUME 94.4 fL (80-94); MONOCYTES # (AUTO) 0.4 K/uL (0.8-1.0); MONOCYTES % (AUTO) 7.1 % (1.7-9.3); NEUTROPHILS # (AUTO) 2.5 K/uL (1.8-7.7); NEUTROPHILS % (AUTO) 46.3 % (42.2-75.2); PLATELET COUNT (AUTO) 292 K/uL (140-450); RED BLOOD CELL COUNT(AUTO) 3.82 MIL/uL (4.20-5.40); RED CELL DISTRIBUTION WIDTH 12.7 % (11.6-13.7); WHITE BLOOD COUNT (AUTO) 5.3 K/uL (4.8-10.8)
[2018-12-22 08:00] VITALS: BP 136/72
[2018-12-22 08:00] LABS: ANION GAP 13.3 (8-16); CARBON DIOXIDE 28.1 mmol/L (21-32); CREATININE 0.8 mg/dL (0.6-1.3); MAGNESIUM 1.6 mg/dL (1.8-2.4); PHOSPHORUS 3.7 mg/dL (2.5-4.9); POTASSIUM 4.4 mmol/L (3.5-5.1)
[2018-12-22] MEDS ORDERED: ELA10 PO (08:34)
[2018-12-22] MEDS: BENAZEPRIL 5 MG TAB PO SCH (08:41)
[2018-12-22] MEDS: SENNA 8.6 MG TAB PO SCH (08:41)
[2018-12-22] MEDS ORDERED: CEPH250C16 PO (08:42)
[2018-12-22] MEDS: DOCUSATE SODIUM 100 MG GELCAP PO SCH (08:42)
[2018-12-22] MEDS ORDERED: MAGNESIUM OXIDE 400 MG TAB PO SCH (09:30)
[2018-12-22 11:12] VITALS: BP 133/64
[2018-12-23 06:06] LABS: LD1 FRACTION 21 % (17-32); LD2 FRACTION 33 % (25-40); LD3 FRACTION 25 % (17-27); LD4 FRACTION 9 % (5-13); LD5 FRACTION 12 % (4-20)
== END 2018-12-22 12:35 | disposition home or self-care (01) | DRG 282 ==
LOC: MED 15:28 → MTU 19:04 → UNDOADMIN 19:04 → MTU 19:27
PROVIDERS: ADMIT General Practice; ATTEND General Practice
DX: K85.30 Drug induced acute pancreatitis without necrosis or infection (principal); E83.42 Hypomagnesemia; K57.30 Diverticulosis of large intestine without perforation or abscess without bleeding; N39.0 Urinary tract infection, site not specified; E11.9 Type 2 diabetes mellitus without complications; I10 Essential (primary) hypertension; K21.9 Gastro-esophageal reflux disease without esophagitis; M79.7 Fibromyalgia; M81.0 Age-related osteoporosis without current pathological fracture; T38.3X5A Adverse effect of insulin and oral hypoglycemic [antidiabetic] drugs, initial encounter; F32.9 Major depressive disorder, single episode, unspecified; Z88.8 Allergy status to other drugs, medicaments and biological substances; Z79.84 Long term (current) use of oral hypoglycemic drugs; Z79.899 Other long term (current) drug therapy; Z83.3 Family history of diabetes mellitus; Y92.89 Other specified places as the place of occurrence of the external cause
CPT/HCPCS: 36415; 74018; 76705; 80048; 80053; 80305; 81001; 82150; 82948; 83036; 83625; 83690; 83735; 83880; 84100; 84439; 84443; 84484; 85025; 85610; 85730; 87040; 87081; 87086; 87186; 96374; 96375; 99285; J0696; J1170; J1644; J1815; J1885; J2270; J2405; J2765; J3475; J7030; J7042; J7060; J7120; Q0092; Q9967

== ENCOUNTER 2019-01-09 11:35 | Emergency (ER) | payer MEDICAID ==
[~2019-01-09] VITALS: Ht 149.9 cm; Wt 72.6 kg
[~2019-01-09 11:35] MED LIST changes: -AMIT10TA25 PO; -BRIM5SOL1 OP; +CEPH250C16 PO; -CYCL-654 PO; -DOCU-299 PO; +ELA10 PO; -GABA-636 PO; -GEMF-65 PO; -LORA10OD44 PO; -ONDA4TAB PO; -PANT40EC PO; -SUCR1TAB35 PO; -TIM.5OS OP
[2019-01-09 11:44] VITALS: BP 113/63
[2019-01-09] MEDS ORDERED: NACL 0.9% 1,000 ML IV SCH ×2 (12:20→15:31)
[2019-01-09] MEDS ORDERED: NACL 0.9% 1,000 ML IV ONE (12:20)
[2019-01-09] MEDS ORDERED: MORPHINE SULFATE 2 MG/ML SYR IVP ONE (12:20)
[2019-01-09 13:28] LABS: BASOPHILS # (AUTO) 0.1 K/uL (0.00-0.22); EOSINOPHILS # (AUTO) 0.2 K/uL (0-0.4); EOSINOPHILS % (AUTO) 3.1 % (0.0-4.0); HEMATOCRIT 36.3 % (36-48); LYMPHOCYTES # (AUTO) 1.5 K/uL (2.5-16.5); LYMPHOCYTES % (AUTO) 26.4 % (20.5-51.1); MEAN CORPUSCULAR HEMOGLOBIN 32 pg (27-31); MEAN CORPUSCULAR HGB CONC 33 g/dL (33-37); MEAN CORPUSCULAR VOLUME 95.3 fL (80-94); MONOCYTES # (AUTO) 0.3 K/uL (0.8-1.0); MONOCYTES % (AUTO) 5.5 % (1.7-9.3); NEUTROPHILS # (AUTO) 3.6 K/uL (1.8-7.7); PLATELET COUNT (AUTO) 276 K/uL (140-450); WHITE BLOOD COUNT (AUTO) 5.7 K/uL (4.8-10.8)
[2019-01-09 13:36] LABS: APPEARANCE,URINE CLEAR (CLEAR); BILIRUBIN,URINE NEGATIVE (NEGATIVE); BLOOD, URINE NEGATIVE (NEGATIVE); COLOR,URINE YELLOW (YELLOW); LEUKOCYTE ESTERASE ,URINE NEGATIVE (NEGATIVE); NITRITE, URINE NEGATIVE (NEGATIVE); PH,URINE 5.5 (5.0-9.0); UGLUCOSE 3+ (NEGATIVE)
[2019-01-09 13:44] LABS: RBC,URINE 0 /HPF (0-5); WBC,URINE 0-5 /HPF (0-5)
[2019-01-09 13:51] LABS: ALBUMIN 4.2 g/dL (3.4-5.0); ANION GAP 12.9 (8-16); CARBON DIOXIDE 25.4 mmol/L (21-32); POTASSIUM 4.3 mmol/L (3.5-5.1); TOTAL BILIRUBIN 0.3 mg/dL (0.0-1.0)
[2019-01-09] MEDS ORDERED: ONDANSETRON 4 MG/2 ML VIAL IVP ONE (14:55)
[2019-01-09] MEDS ORDERED: METOCLOPRAMIDE 10 MG/2 ML INJ VIAL IVP ONE (14:55)
[2019-01-09] MEDS ORDERED: INSULIN REGULAR, HUMAN 100 UNIT/ML VIAL SUBQ ONE (14:55)
[2019-01-09] MEDS ORDERED: FAMOTIDINE 20 MG/2 ML VIAL IVP ONE (14:55)
[2019-01-09 17:14] VITALS: BP 109/58
== END 2019-01-09 17:10 | disposition home or self-care (01) ==
LOC: MED 11:35
DX: K57.90 Diverticulosis of intestine, part unspecified, without perforation or abscess without bleeding (principal); E11.65 Type 2 diabetes mellitus with hyperglycemia; F41.9 Anxiety disorder, unspecified; R11.2 Nausea with vomiting, unspecified; I10 Essential (primary) hypertension; Z79.84 Long term (current) use of oral hypoglycemic drugs; Z79.899 Other long term (current) drug therapy; Z88.1 Allergy status to other antibiotic agents
CPT/HCPCS: 36415; 74176; 80053; 81001; 81025; 82150; 82948; 83690; 85025; 96361; 96372; 96374; 96375; 99284; J1815; J2270; J2405; J2765; J3490; J7030

== ENCOUNTER 2019-01-21 13:20 | Emergency (ER) | payer MEDICAID ==
[~2019-01-21] VITALS: Ht 147.3 cm; Wt 51.7 kg
[2019-01-21 13:27] VITALS: BP 104/65
[2019-01-21] MEDS ORDERED: KETOROLAC 60 MG/2 ML VIAL IM ONE (13:55)
[2019-01-21] MEDS ORDERED: ONDANSETRON 4 MG ODT PO ONE (13:55)
[2019-01-21 14:29] VITALS: BP 104/65
== END 2019-01-21 14:29 | disposition home or self-care (01) ==
LOC: MED 13:20
DX: R10.13 Epigastric pain (principal); R11.2 Nausea with vomiting, unspecified; E11.9 Type 2 diabetes mellitus without complications; K21.9 Gastro-esophageal reflux disease without esophagitis; I10 Essential (primary) hypertension; Z79.84 Long term (current) use of oral hypoglycemic drugs; Z79.899 Other long term (current) drug therapy; Z88.1 Allergy status to other antibiotic agents
CPT/HCPCS: 81002; 81025; 96372; 99283; J1885; Q0162

== ENCOUNTER 2019-04-16 13:05 | Emergency (ER) | payer MEDICAID ==
[~2019-04-16] VITALS: Ht 157.5 cm; Wt 54.4 kg
[2019-04-16 13:11] VITALS: BP 115/67
--- NOTE | 2019-04-16 13:14 | NUR ---
TRIAGE COMPLETE. VSS. RETURNED TO LOBBY TO WAIT FOR BED IN ED.
--- NOTE | 2019-04-16 13:30 | NUR ---
PT AMBULATED TO ER BED 12
[2019-04-16] MEDS ORDERED: NACL 0.9% 500 ML IV ONE (13:40)
[2019-04-16] MEDS ORDERED: ASPIRIN 325 MG TAB PO ONE (13:40)
--- NOTE | 2019-04-16 13:50 | NUR ---
PT C/O NONRADIATING CP WITH NON-PRODUCTIVE COUGH X 2 MONTHS. PT ADDS SORE THROAT, HEADACHE, CONGESTION, PAIN 8/10. LUNGS CLEAR BILTERALLY. RR EVEN AND UNLABORED. PT HAS BILATERAL LOWER LEG EDEMA, PALPABLE PEDAL PULSES. DENIES FEVER OR SOB. PTS VS STABLE. PT ALERT ADN AWAKE. AMBULATORY WITH STEADY GAIT PMH- GERD, HTN, DM
--- NOTE | 2019-04-16 13:55 | NUR ---
ASPIRIN PO ADMINISTERED
--- NOTE | 2019-04-16 14:15 | NUR ---
500 ML NACL STARTED AT 100MLS/HR
[2019-04-16 14:36] LABS: BASOPHILS % (AUTO) 0.8 % (0.0-2.0); EOSINOPHILS # (AUTO) 0.1 K/uL (0-0.4); EOSINOPHILS % (AUTO) 2.2 % (0.0-4.0); HEMATOCRIT 36.1 % (36-48); HEMOGLOBIN 11.8 g/dL (12.0-16.0); LYMPHOCYTES % (AUTO) 20.5 % (20.5-51.1); MEAN CORPUSCULAR HEMOGLOBIN 30 pg (27-31); MEAN CORPUSCULAR HGB CONC 33 g/dL (33-37); MEAN CORPUSCULAR VOLUME 92.9 fL (80-94); MONOCYTES # (AUTO) 0.4 K/uL (0.8-1.0); MONOCYTES % (AUTO) 7.4 % (1.7-9.3); NEUTROPHILS # (AUTO) 3.3 K/uL (1.8-7.7); NEUTROPHILS % (AUTO) 69.1 % (42.2-75.2); PLATELET COUNT (AUTO) 251 K/uL (140-450); RED BLOOD CELL COUNT(AUTO) 3.88 MIL/uL (4.20-5.40); RED CELL DISTRIBUTION WIDTH 12.9 % (11.6-13.7); WHITE BLOOD COUNT (AUTO) 4.7 K/uL (4.8-10.8)
[2019-04-16 15:01] LABS: ANION GAP 15.3 (8-16); CARBON DIOXIDE 26.1 mmol/L (21-32); CREATININE 0.9 mg/dL (0.6-1.3); POTASSIUM 4.4 mmol/L (3.5-5.1)
[2019-04-16 15:07] LABS: ALBUMIN 3.7 g/dL (3.4-5.0); TOTAL BILIRUBIN 0.3 mg/dL (0.0-1.0)
[2019-04-16] MEDS ORDERED: KETOROLAC 30 MG/ML VIAL IVP ONE (15:10)
[2019-04-16] MEDS ORDERED: ALBUTEROL 0.083% 2.5 MG/3 ML NEBU INH ONE (15:10)
--- NOTE | 2019-04-16 15:19 | NUR ---
TORADOL IVP ADMINISTERED, CALLED RT FOR BREATHING TX
--- NOTE | 2019-04-16 15:27 | NUR ---
RT AT BEDSIDE
--- NOTE | 2019-04-16 15:38 | NUR ---
PT AMB TO RESTROOM WITH STEADY GAIT
[2019-04-16 15:39] LABS: APPEARANCE,URINE CLEAR (CLEAR); BILIRUBIN,URINE NEGATIVE (NEGATIVE); BLOOD, URINE NEGATIVE (NEGATIVE); COLOR,URINE YELLOW (YELLOW); LEUKOCYTE ESTERASE ,URINE NEGATIVE (NEGATIVE); NITRITE, URINE NEGATIVE (NEGATIVE); PH,URINE 6.5 (5.0-9.0); UGLUCOSE 3+ (NEGATIVE)
--- NOTE | 2019-04-16 16:41 | NUR ---
NADR, CHEST PAIN 2/10 WITH COUGHING
--- NOTE | 2019-04-16 17:21 | NUR ---
VS STABLE. PT RESTING IN BED COMFORTABLY. NACL RUNNING AT 100 MLS/HR
--- NOTE | 2019-04-16 18:08 | NUR ---
PENDING TROPONIN VALUE AT THIS TIME
--- NOTE | 2019-04-16 18:31 | NUR ---
VS STABLE, PT ALERT AND AWAKE
--- NOTE | 2019-04-16 19:15 | NUR ---
REPORT GIVEN TO SARAH HUANG
--- NOTE | 2019-04-16 19:15 | NUR ---
RECEIVED REPORT FROM REINA JEAN BAPTISTE.
[2019-04-16 19:43] VITALS: BP 104/55
--- NOTE | 2019-04-16 19:43 | NUR ---
Patient discharged with v/s stable. Written and verbal after care instructions given and explained. Patient alert, oriented and verbalized understanding of instructions. Ambulatory with steady gait. All questions addressed prior to discharge. ID band removed. Patient advised to follow up with PMD. Rx of PREDNISONEL ALBUTEROL;NAPROSYN given. Patient educated on indication of medication including possible reaction and side effects. Opportunity to ask questions provided and answered.
== END 2019-04-16 19:43 | disposition home or self-care (01) ==
LOC: MED 13:05
DX: J06.9 Acute upper respiratory infection, unspecified (principal); K21.9 Gastro-esophageal reflux disease without esophagitis; E11.9 Type 2 diabetes mellitus without complications; I10 Essential (primary) hypertension; Z79.899 Other long term (current) drug therapy; Z88.6 Allergy status to analgesic agent
CPT/HCPCS: 36415; 71045; 80053; 81003; 82552; 83690; 84484; 85025; 93005; 94640; 96374; 99284; J1885; J7030; J7613; Q0092

== ENCOUNTER 2019-04-30 14:48 | Emergency (ER) | payer MEDICAID ==
[~2019-04-30] VITALS: Ht 149.9 cm; Wt 59.0 kg
[2019-04-30 14:55] VITALS: BP 104/67
--- NOTE | 2019-04-30 14:55 | NUR ---
TO BED # 03 AMBULATORY
--- NOTE | 2019-04-30 15:35 | NUR ---
64 Y/O F C/O LEFT WRIST PAIN 5/10 X 1 WEEK. PT STATES NUMBNESS IN FINGER TIPS. PT ABLE TO MOVE ALL FINGERS, CAP REFILL LESS THAN 3. PT POSITIONED FOR COMFORT
[2019-04-30 16:24] VITALS: BP 104/67
--- NOTE | 2019-04-30 16:25 | NUR ---
Patient discharged with v/s stable. Written and verbal after care instructions given and explained. Patient verbalized understanding. Ambulatory with steady gait. All questions addressed prior to discharge. Advised to follow up with PMD.
== END 2019-04-30 16:25 | disposition home or self-care (01) ==
LOC: MED 14:48
DX: M79.642 Pain in left hand (principal); E11.9 Type 2 diabetes mellitus without complications; K21.9 Gastro-esophageal reflux disease without esophagitis; I10 Essential (primary) hypertension; Z98.890 Other specified postprocedural states; Z79.84 Long term (current) use of oral hypoglycemic drugs; Z79.899 Other long term (current) drug therapy; Z88.1 Allergy status to other antibiotic agents
CPT/HCPCS: 99283

== ENCOUNTER 2019-08-01 16:13 | Emergency (ER) | payer MEDICAID ==
[~2019-08-01] VITALS: Ht 144.8 cm; Wt 54.4 kg
[2019-08-01 16:25] VITALS: BP 125/67
--- NOTE | 2019-08-01 16:29 | NUR ---
64 YO ARMENIAN SPEAKING FEMALE CO ARM/WRIST PAIN. PT STATES THAT SHE FELL AT HOME. AREA IS RED AND SWOLLEN WITH NO WARMTH. NO BLEEDING. PT IS UNABLE TO MOVE WRIST. MED HX: HTN, DM, GERD, HIGH CHOLESTEROL
--- NOTE | 2019-08-01 16:30 | NUR ---
XRAY AT BEDSIDE
--- NOTE | 2019-08-01 16:34 | NUR ---
R HAND IS VISABLY SWOLLEN. PALPABLE RADIAL PULSE. PT STATES FELL 2 HOURS PRIOR TO ARRIVAL, BUT DENIES HITTING HEAD LYLE HUANG TRANSLATING GRENADIAN
--- NOTE | 2019-08-01 16:34 | NUR ---
ICE PACK APPLIED TO SITE
[2019-08-01] MEDS ORDERED: HYDROcodone/APAP 5/325 MG 1 TAB TAB PO ONE (17:10)
--- NOTE | 2019-08-01 17:25 | NUR ---
PT PLACED IN 3" FABRICATED FIBERGLASS VOLAR SPLINT AND SLING IMMOBOLIZER. PT CMS WNL BEFORE AND AFTER DOCTOR AND RN NOTIFIED.
[2019-08-01 17:37] VITALS: BP 125/67
--- NOTE | 2019-08-01 17:46 | NUR ---
CD GIVEN TO PATIENT IN LOBBY WAITING ROOM. 2 RN VERIFICATION DONE.
== END 2019-08-01 17:37 | disposition home or self-care (01) ==
LOC: MED 16:13
DX: S62.345A Nondisplaced fracture of base of fourth metacarpal bone, left hand, initial encounter for closed fracture (principal); S62.347A Nondisplaced fracture of base of fifth metacarpal bone, left hand, initial encounter for closed fracture; S80.02XA Contusion of left knee, initial encounter; S80.01XA Contusion of right knee, initial encounter; E11.9 Type 2 diabetes mellitus without complications; I10 Essential (primary) hypertension; K21.9 Gastro-esophageal reflux disease without esophagitis; Z79.899 Other long term (current) drug therapy; Z88.1 Allergy status to other antibiotic agents; Z79.4 Long term (current) use of insulin; W18.30XA Fall on same level, unspecified, initial encounter; Y93.89 Activity, other specified; Y92.89 Other specified places as the place of occurrence of the external cause; Y99.8 Other external cause status
CPT/HCPCS: 29125; 73110; 73130; 99284; Q0092

== ENCOUNTER 2019-08-08 13:48 | Emergency (ER) | payer MEDICAID ==
[~2019-08-08] VITALS: Ht 157.5 cm; Wt 65.8 kg
[2019-08-08 13:52] VITALS: BP 131/70
[2019-08-08] MEDS ORDERED: LIDOCAINE 2% 1000 MG/50 ML VIAL INJ ONE (14:05)
--- NOTE | 2019-08-08 14:20 | NUR ---
64 Y/O F C/C INGROWN TOE NAIL ON LEFT FOOT. PER PT PAIN 12/03. HAS NO FURTHER COMPLAINTS. PT NKA. HX HTN,DM,HDL. RX BENAZAPRIL,DM RX, LIPITOR. NO N/V/D. SIDE RAIL X1.
--- NOTE | 2019-08-08 14:23 | NUR ---
lidocaine at bedside for ermd
--- NOTE | 2019-08-08 14:28 | NUR ---
PT RESTING IN BED, SIDE RAIL X1
--- NOTE | 2019-08-08 15:00 | NUR ---
ERMD AT BEDSIDE
--- NOTE | 2019-08-08 15:20 | NUR ---
ERMD AT BEDSIDE
[2019-08-08 15:43] VITALS: BP 131/70
== END 2019-08-08 15:43 | disposition home or self-care (01) ==
LOC: MED 13:48
DX: L60.0 Ingrowing nail (principal); E11.9 Type 2 diabetes mellitus without complications; K21.9 Gastro-esophageal reflux disease without esophagitis; I10 Essential (primary) hypertension; Z79.899 Other long term (current) drug therapy; Z79.84 Long term (current) use of oral hypoglycemic drugs; Z88.8 Allergy status to other drugs, medicaments and biological substances
CPT/HCPCS: 11730; 99284; J2001; 11750

== ENCOUNTER 2019-08-10 14:43 | Emergency (ER) | payer MEDICAID ==
[~2019-08-10] VITALS: Ht 157.5 cm; Wt 59.0 kg
[2019-08-10 14:54] VITALS: BP 125/69
[2019-08-10] MEDS ORDERED: LIDOCAINE MPF 1% 10 MG/ML VIAL INJ ONE (15:10)
[2019-08-10 16:18] VITALS: BP 132/70
== END 2019-08-10 16:18 | disposition home or self-care (01) ==
LOC: MED 14:43
DX: L60.0 Ingrowing nail (principal); E11.9 Type 2 diabetes mellitus without complications; I10 Essential (primary) hypertension; K21.9 Gastro-esophageal reflux disease without esophagitis; R56.9 Unspecified convulsions; Z88.6 Allergy status to analgesic agent; Z79.899 Other long term (current) drug therapy; Z79.84 Long term (current) use of oral hypoglycemic drugs
CPT/HCPCS: 11730; 99284; J2001

== ENCOUNTER 2020-01-22 13:12 | Emergency (ER) | payer MEDICAID ==
[~2020-01-22] VITALS: Ht 144.8 cm; Wt 56.2 kg
[2020-01-22 13:25] VITALS: BP 94/71
[2020-01-22] MEDS: KETOROLAC 60 MG/2 ML VIAL IM ONE (14:32)
[2020-01-22] MEDS: ONDANSETRON 4 MG ODT PO ONE (14:47)
[2020-01-22 15:39] VITALS: BP 94/71
== END 2020-01-22 15:39 | disposition home or self-care (01) ==
LOC: MED 13:12
DX: J02.9 Acute pharyngitis, unspecified (principal); R05 Cough; N12 Tubulo-interstitial nephritis, not specified as acute or chronic; E11.9 Type 2 diabetes mellitus without complications; I10 Essential (primary) hypertension; K21.9 Gastro-esophageal reflux disease without esophagitis; R56.9 Unspecified convulsions; Z88.6 Allergy status to analgesic agent; Z79.899 Other long term (current) drug therapy
CPT/HCPCS: 81002; 82948; 96372; 99283; J1885; Q0162

== ENCOUNTER 2020-01-29 13:48 | Emergency (ER) | payer MEDICAID ==
[~2020-01-29] VITALS: Ht 147.3 cm; Wt 57.6 kg
[2020-01-29 14:00] VITALS: BP 97/58
--- NOTE | 2020-01-29 14:07 | NUR ---
WAIT AT LOBBY. HANDED ON URINE CUP.
[2020-01-29] MEDS ORDERED: SODIUM CHLORIDE FLUSH 10 ML SYR IVF STA (14:09)
[2020-01-29 14:47] LABS: BASOPHILS # (AUTO) 0.1 K/uL (0.00-0.22); BASOPHILS % (AUTO) 1.1 % (0.0-2.0); EOSINOPHILS # (AUTO) 0.2 K/uL (0-0.4); EOSINOPHILS % (AUTO) 4.4 % (0.0-4.0); HEMATOCRIT 35.5 % (36-48); HEMOGLOBIN 11.9 g/dL (12.0-16.0); LYMPHOCYTES # (AUTO) 1.6 K/uL (2.5-16.5); LYMPHOCYTES % (AUTO) 30.6 % (20.5-51.1); MEAN CORPUSCULAR HEMOGLOBIN 33 pg (27-31); MEAN CORPUSCULAR HGB CONC 34 g/dL (33-37); MEAN CORPUSCULAR VOLUME 96.7 fL (80-94); MONOCYTES # (AUTO) 0.3 K/uL (0.8-1.0); NEUTROPHILS # (AUTO) 3.1 K/uL (1.8-7.7); NEUTROPHILS % (AUTO) 57.9 % (42.2-75.2); PLATELET COUNT (AUTO) 376 K/uL (140-450); RED BLOOD CELL COUNT(AUTO) 3.67 MIL/uL (4.20-5.40); RED CELL DISTRIBUTION WIDTH 13.9 % (11.6-13.7); WHITE BLOOD COUNT (AUTO) 5.4 K/uL (4.8-10.8)
[2020-01-29 14:50] LABS: APPEARANCE,URINE CLEAR (CLEAR); BILIRUBIN,URINE NEGATIVE (NEGATIVE); BLOOD, URINE NEGATIVE (NEGATIVE); COLOR,URINE YELLOW (YELLOW); LEUKOCYTE ESTERASE ,URINE NEGATIVE (NEGATIVE); NITRITE, URINE NEGATIVE (NEGATIVE); UGLUCOSE NEGATIVE (NEGATIVE)
[2020-01-29 15:01] LABS: ALBUMIN 4.1 g/dL (3.4-5.0); ANION GAP 14.8 (8-16); CARBON DIOXIDE 27.3 mmol/L (21-32); CREATININE 1.4 mg/dL (0.6-1.3); POTASSIUM 4.1 mmol/L (3.5-5.1); TOTAL BILIRUBIN 0.2 mg/dL (0.0-1.0)
--- NOTE | 2020-01-29 15:02 | NUR ---
PATIENT AMBULATED TO ER BED 08
[2020-01-29] MEDS ORDERED: KETOROLAC 30 MG/ML VIAL IVP ONE (15:15)
[2020-01-29] MEDS ORDERED: cefTRIAXone 1,000 MG in DEXT 5% MINI-BAG PLUS 50 ML IV ONE (15:15)
--- NOTE | 2020-01-29 15:21 | NUR ---
20G iv placed to right AC, good blood return noted.
[2020-01-29] MEDS ORDERED: cefTRIAXone 1,000 MG VIAL ONE (15:23)
--- NOTE | 2020-01-29 15:24 | NUR ---
64 y/o female c/o abdominal pain x1week 910 radiates to upper back, and under the right breast. Pt states she was seen X1 week ago and was prescribed tynenol codeine with no relief. Abdomen is firm to palpation in all 4 quadrants, pt is guarding. Bowel sounds are present X4. Last BM 01/28/20. PMH: HTN, and DM RX: Lisinopril and ganuvia NKA
--- NOTE | 2020-01-29 16:02 | NUR ---
Pt taken to CT via wheelchair.
[2020-01-29] MEDS ORDERED: NACL 0.9% 1,000 ML IV STA (16:14)
--- NOTE | 2020-01-29 16:19 | NUR ---
Pt back from CT, fluids and medications running.
--- NOTE | 2020-01-29 17:10 | NUR ---
Patient states aching constant pain at rest 9/10 to abdomen, upper back, and under the right breast.
[2020-01-29] MEDS ORDERED: HYDROcodone/APAP 5/325 MG 1 TAB TAB PO SCH (17:29)
--- NOTE | 2020-01-29 17:30 | NUR ---
Dr. Jorge at pt bedside. Pain medication administered per MD order.
[2020-01-29 17:44] VITALS: BP 118/74
--- NOTE | 2020-01-29 17:45 | NUR ---
Patient discharged with v/s stable. Written and verbal after care instructions given and explained. Patient alert, oriented and verbalized understanding of instructions. Ambulatory with steady gait. All questions addressed prior to discharge. ID band removed. Patient advised to follow up with PMD. Rx of zofran ODT 4mg 1 tab q8h PO given. Patient educated on indication of medication including possible reaction and side effects. Opportunity to ask questions provided and answered.
== END 2020-01-29 17:45 | disposition home or self-care (01) ==
LOC: MED 13:48
DX: R10.30 Lower abdominal pain, unspecified (principal); R11.0 Nausea; E11.9 Type 2 diabetes mellitus without complications; I10 Essential (primary) hypertension; N18.9 Chronic kidney disease, unspecified
CPT/HCPCS: 36415; 74177; 80053; 81003; 83690; 84703; 85025; 96361; 96365; 96375; 99285; J0696; J1885; J7030; Q9967

== ENCOUNTER 2020-09-11 10:49 | Emergency (ER) | payer OTHER, MEDICAID ==
[~2020-09-11] VITALS: Ht 149.9 cm; Wt 61.7 kg
[~2020-09-11 10:49] MED LIST changes: +AMIT10TA PO; -ELA10 PO
[2020-09-11 10:55] VITALS: BP 122/69
[2020-09-11] MEDS ORDERED: HYDROcodone/APAP 5/325 MG 1 TAB TAB PO ONE (11:25)
[2020-09-11] MEDS ORDERED: ACET-8386 PO (12:57)
[2020-09-11] MEDS ORDERED: FURO-572 PO (12:57)
[2020-09-11 13:20] VITALS: BP 122/69
== END 2020-09-11 13:24 | disposition home or self-care (01) ==
LOC: MED 10:49
DX: S20.219A Contusion of unspecified front wall of thorax, initial encounter (principal); M79.601 Pain in right arm; M79.604 Pain in right leg; I10 Essential (primary) hypertension; E11.9 Type 2 diabetes mellitus without complications; E78.00 Pure hypercholesterolemia, unspecified; Z88.1 Allergy status to other antibiotic agents; W18.39XA Other fall on same level, initial encounter; Y93.89 Activity, other specified; Y92.89 Other specified places as the place of occurrence of the external cause; Y99.8 Other external cause status
CPT/HCPCS: 71101; 73130; 73590; 99284

== ENCOUNTER 2021-05-05 11:51 | Emergency (ER) | payer OTHER, MEDICAID ==
[~2021-05-05] VITALS: Ht 144.8 cm; Wt 59.0 kg
[~2021-05-05 11:51] MED LIST changes: +ACET-8386 PO; +FURO-572 PO
[2021-05-05 11:53] VITALS: BP 112/67
--- NOTE | 2021-05-05 12:00 | NUR ---
PT AMB TO BED 2
--- NOTE | 2021-05-05 12:05 | NUR ---
66 Y/O F AMBULATED TO BED 2 C/O RUQ ABD PAIN RADITING TO MID BACK PAIN , STUBBS X 1 MONTH. BLOOD SUGAR 130 IN TRIAGE. PMH: DM, HTN
[2021-05-05] MEDS ORDERED: fentaNYL citrate 0.05 MG/ML VIAL IM ONE (12:30)
[2021-05-05] MEDS ORDERED: ONDANSETRON 4 MG ODT PO ONE (12:30)
[2021-05-05] MEDS ORDERED: ACET-8386 PO ×2 (12:57→13:11)
[2021-05-05] MEDS ORDERED: CYCL-711 PO (13:11)
[2021-05-05 13:30] VITALS: BP 110/66
--- NOTE | 2021-05-05 13:34 | NUR ---
Patient discharged with v/s stable. Written and verbal after care instructions given and explained. Patient alert, oriented and verbalized understanding of instructions. Ambulatory with steady gait. All questions addressed prior to discharge. ID band removed. Patient advised to follow up with PMD. Rx of FLEXERIL, NORC 5-325 given. Patient educated on indication of medication including possible reaction and side effects. Opportunity to ask questions provided and answered.
== END 2021-05-05 13:34 | disposition home or self-care (01) ==
LOC: MED 11:51
DX: M54.50 Low back pain, unspecified (principal); E11.9 Type 2 diabetes mellitus without complications; I10 Essential (primary) hypertension; Z79.84 Long term (current) use of oral hypoglycemic drugs; Z79.899 Other long term (current) drug therapy; Z88.1 Allergy status to other antibiotic agents
CPT/HCPCS: 81002; 96372; 99283; J3010; Q0162

== ENCOUNTER 2021-08-01 14:38 | Emergency (ER) | payer OTHER, MEDICAID ==
[~2021-08-01] VITALS: Ht 149.9 cm; Wt 59.4 kg
[~2021-08-01 14:38] MED LIST changes: +CYCL-711 PO; +METF-564 PO; -METF500T PO
[2021-08-01 14:57] VITALS: BP 125/59
[2021-08-01] MEDS ORDERED: ACET-10509 PO (17:02)
[2021-08-01] MEDS ORDERED: GUAI473L41 PO (17:02)
--- NOTE | 2021-08-01 17:30 | NUR ---
66/F PRESENTS TO ED WITH C/O COUGH AND CONGESTION X2 WEEKS, DENIES TAKING MEDS FOR SYMPTOMS. DENIES N/V/D OR RECENT SICK CONTACTS. REPORTS 8/10 SHARP CHEST PAIN THAT TODAY THAT WORSENS WITH COUGH. DENIES SOB, FEVER, CHILLS.
[2021-08-01 18:28] VITALS: BP 106/52
--- NOTE | 2021-08-01 18:29 | NUR ---
Patient discharged with v/s stable. Written and verbal after care instructions ABOUT UPPER RESPIRATORY INFECTION given and explained. Patient alert, oriented and verbalized understanding of instructions. Ambulatory with steady gait. All questions addressed prior to discharge. ID band removed. Patient advised to follow up with PMD. Rx of TYLENOL EXTRA STRENGTH AND GUAIFENESIN/DESTROMETHORPHAN given. Patient educated on indication of medication including possible reaction and side effects. Opportunity to ask questions provided and answered.
== END 2021-08-01 18:29 | disposition home or self-care (01) ==
LOC: MED 14:38
DX: J06.9 Acute upper respiratory infection, unspecified (principal); I10 Essential (primary) hypertension; E11.9 Type 2 diabetes mellitus without complications; Z79.899 Other long term (current) drug therapy; Z79.891 Long term (current) use of opiate analgesic; Z79.2 Long term (current) use of antibiotics; Z88.6 Allergy status to analgesic agent
CPT/HCPCS: 71045; 93005; 99283

== ENCOUNTER 2021-09-15 12:54 | Emergency (ER) | payer OTHER, MEDICAID ==
[~2021-09-15] VITALS: Ht 147.3 cm; Wt 58.5 kg
[~2021-09-15 12:54] MED LIST changes: +ACET-10509 PO; +GUAI473L41 PO; +METF-346 PO; -METF-564 PO
[2021-09-15 13:04] VITALS: BP 116/83
--- NOTE | 2021-09-15 13:11 | NUR ---
Patient ambulated with steady gait to bed 8.
--- NOTE | 2021-09-15 13:33 | NUR ---
66YO FEMALE PT C/O N/V/D, HEADACHE, AND BODY ACHES X4DAYS. PT STATES OCCASIONAL BODY ACHES AND EPISODES OF CHILLS. PT DENIES BLOOD IN VOMIT OR DIARRHEA. PT TENDER TO TOUCH THROUGHOUT BODY. PT STATES CURRENT NAUSEA AND 8/10 HEADACHE. DENIES TAKING MEDICATION TO RELIEF SYMPTOMS. DENIES ANY SICK AT HOME OR FROM RECENT CONTACT. PT AMBULATORY WITH ASSISTIVE DEVICE: CANE. PT AAOX4, SKIN WARM TO TOUCH, NO VISIBLE DISTRESS, RESPIRATIONS EVEN AND UNLABORED. BED AT LOWEST POSITION, BED RAILS UP X1. ROOM LIGHTS DIMMED PER PT COMFORT. HX: HTN, DIABETES ALLERGIES :CELECOXIB
[2021-09-15] MEDS ORDERED: KETOROLAC 15 MG/ML VIAL IVP ONE (13:35)
[2021-09-15] MEDS ORDERED: ONDANSETRON 4 MG/2 ML VIAL IVP ONE (13:35)
[2021-09-15] MEDS ORDERED: NACL 0.9% 1,000 ML IV ONE (13:35)
[2021-09-15] MEDS ORDERED: DICYCLOMINE HCL LIQUID 20 MG, ALUMINUM HYD/MAG/SIMETHICONE 30 ML, LIDOCAINE VISCOUS 2% ... PO ONE ×3 (13:35)
[2021-09-15] MEDS ORDERED: ALUMINUM HYD/MAG/SIMETHICONE 30 ML UDC ONE (14:02)
[2021-09-15] MEDS ORDERED: DICYCLOMINE HCL LIQUID 10 MG/5 ML UDC ONE (14:02)
--- NOTE | 2021-09-15 14:17 | NUR ---
US AT BEDSIDE
[2021-09-15 14:29] LABS: BASOPHILS % (AUTO) 0.6 % (0.0-2.0); HEMATOCRIT 37.7 % (36-48); HEMOGLOBIN 12.5 g/dL (12.0-16.0); LYMPHOCYTES # (AUTO) 0.7 K/uL (2.5-16.5); LYMPHOCYTES % (AUTO) 19.3 % (20.5-51.1); MEAN CORPUSCULAR HEMOGLOBIN 33 pg (27-31); MEAN CORPUSCULAR HGB CONC 33 g/dL (33-37); MEAN CORPUSCULAR VOLUME 98.4 fL (80-94); MONOCYTES # (AUTO) 0.3 K/uL (0.8-1.0); MONOCYTES % (AUTO) 8.6 % (1.7-9.3); NEUTROPHILS # (AUTO) 2.7 K/uL (1.8-7.7); NEUTROPHILS % (AUTO) 70.5 % (42.2-75.2); PLATELET COUNT (AUTO) 285 K/uL (140-450); RED BLOOD CELL COUNT(AUTO) 3.83 MIL/uL (4.20-5.40); WHITE BLOOD COUNT (AUTO) 3.8 K/uL (4.8-10.8)
[2021-09-15 14:53] LABS: ALBUMIN 4.4 g/dL (3.4-5.0); ANION GAP 11.1 (8-16); CARBON DIOXIDE 27.7 mmol/L (21-32); CREATININE 0.9 mg/dL (0.6-1.3); POTASSIUM 3.8 mmol/L (3.5-5.1); TOTAL BILIRUBIN 0.3 mg/dL (0.0-1.0)
[2021-09-15 15:33] VITALS: BP 121/58
[2021-09-15] MEDS ORDERED: AZITHROMYCIN 250 MG TAB PO ONE (15:55)
[2021-09-15] MEDS ORDERED: ONDA-188 SL (15:58)
--- NOTE | 2021-09-15 16:20 | NUR ---
IV removed, catheter intact and site benign. Applied folded 4x4 gauze and tape to stop bleeding.
--- NOTE | 2021-09-15 16:23 | NUR ---
Patient discharged with v/s stable. Written and verbal after care instructions FOR FOOD POISONING , NAUSEA AND VOMITING given and explained. Patient alert, oriented and verbalized understanding of instructions. Ambulatory with steady gait. All questions addressed prior to discharge. ID band removed. Patient advised to follow up with PMD. Rx of ZOFRAN given. Opportunity to ask questions provided and answered.
--- NOTE | 2021-09-15 16:24 | NUR ---
The patient's care was reviewed and supervised by Johana Moser RN.
== END 2021-09-15 16:23 | disposition home or self-care (01) ==
LOC: MED 12:54
DX: R11.2 Nausea with vomiting, unspecified (principal); R10.13 Epigastric pain; E11.9 Type 2 diabetes mellitus without complications; I10 Essential (primary) hypertension; Z79.4 Long term (current) use of insulin; Z79.899 Other long term (current) drug therapy; Z79.84 Long term (current) use of oral hypoglycemic drugs; Z98.890 Other specified postprocedural states
CPT/HCPCS: 36415; 76705; 80053; 81002; 83690; 85025; 96361; 96374; 96375; 99284; J1885; J2405; J7030; Q0092

== ENCOUNTER 2022-07-24 17:53 | Emergency (ER) | payer OTHER, MEDICAID ==
[~2022-07-24 17:53] MED LIST changes: -ACET-8386 PO; +ACET-8905 PO; +ONDA-188 SL
--- NOTE | 2022-07-24 18:16 | NUR ---
PER ER TERRI BRAND, PT LEFT
--- NOTE | 2022-07-24 18:16 | NUR ---
ADMITTING STATES PT WALKED OUT LWBS
--- NOTE | 2022-07-24 18:46 | NUR ---
CALLED ONE MORE TIME IN LOBBY, NO ANSWER
[2022-07-25] MEDS ORDERED: PROM118S6 PO (14:24)
[2022-07-25] MEDS ORDERED: ACET-10509 PO (14:24)
== END 2022-07-24 18:16 | disposition left against medical advice (07) ==
LOC: MED 17:53
DX: M54.50 Low back pain, unspecified (principal); Z53.21 Procedure and treatment not carried out due to patient leaving prior to being seen by health care provider

== ENCOUNTER 2022-07-25 10:08 | Emergency (ER) | payer OTHER, MEDICAID ==
[~2022-07-25] VITALS: Ht 152.4 cm; Wt 61.2 kg
[2022-07-25 10:18] VITALS: BP 101/75
--- NOTE | 2022-07-25 12:17 | NUR ---
MD TORRES AT BEDSIDE FOR EVALUATION
[2022-07-25] MEDS ORDERED: KETOROLAC 30 MG/ML VIAL IM ONE (12:35)
[2022-07-25 13:07] LABS: BASOPHILS % (AUTO) 0.9 % (0.0-2.0); EOSINOPHILS # (AUTO) 0.1 K/uL (0-0.4); EOSINOPHILS % (AUTO) 1.2 % (0.0-4.0); HEMATOCRIT 32.8 % (36-48); LYMPHOCYTES % (AUTO) 19.8 % (20.5-51.1); MEAN CORPUSCULAR HEMOGLOBIN 33 pg (27-31); MEAN CORPUSCULAR HGB CONC 34 g/dL (33-37); MEAN CORPUSCULAR VOLUME 99.2 fL (80-94); MONOCYTES # (AUTO) 0.5 K/uL (0.8-1.0); MONOCYTES % (AUTO) 9.3 % (1.7-9.3); NEUTROPHILS # (AUTO) 3.4 K/uL (1.8-7.7); NEUTROPHILS % (AUTO) 68.8 % (42.2-75.2); PLATELET COUNT (AUTO) 247 K/uL (140-450); RED BLOOD CELL COUNT(AUTO) 3.31 MIL/uL (4.20-5.40); RED CELL DISTRIBUTION WIDTH 14.1 % (11.6-13.7); WHITE BLOOD COUNT (AUTO) 4.9 K/uL (4.8-10.8)
[2022-07-25 13:39] LABS: ALBUMIN 3.8 g/dL (3.4-5.0); ANION GAP 11.1 (8-16); CARBON DIOXIDE 27.8 mmol/L (21-32); CREATININE 1.2 mg/dL (0.6-1.3); POTASSIUM 3.9 mmol/L (3.5-5.1); TOTAL BILIRUBIN 0.3 mg/dL (0.0-1.0)
--- NOTE | 2022-07-25 13:40 | NUR ---
pt taken to ct via nehemias
[2022-07-25] MEDS ORDERED: ACET-10509 PO (14:24)
[2022-07-25] MEDS ORDERED: PROM118S6 PO (14:24)
[2022-07-25 15:36] VITALS: BP 108/60
--- NOTE | 2022-07-25 15:36 | NUR ---
Patient discharged with v/s stable. Written and verbal after care instructions FOR VIRAL ILLNESS, CHRONIC PAIN BACK AND EDEMA given and explained. Patient alert, oriented and verbalized understanding of instructions. Ambulatory with steady gait. All questions addressed prior to discharge. ID band removed. Patient advised to follow up with PMD. Rx of TYLENOL XTRA STRENGTH AND PROMETHAZINE given. Opportunity to ask questions provided and answered.
--- NOTE | 2022-07-25 15:40 | NUR ---
The patient's care was reviewed and supervised by Johana Moser RN.
== END 2022-07-25 15:36 | disposition home or self-care (01) ==
LOC: MED 10:08
DX: B34.9 Viral infection, unspecified (principal); Z20.822 Contact with and (suspected) exposure to COVID-19; M54.50 Low back pain, unspecified; R60.0 Localized edema; E11.9 Type 2 diabetes mellitus without complications; I10 Essential (primary) hypertension; R06.02 Shortness of breath; Z88.8 Allergy status to other drugs, medicaments and biological substances; Z79.4 Long term (current) use of insulin; Z79.899 Other long term (current) drug therapy
CPT/HCPCS: 36415; 71045; 71250; 80053; 83880; 84484; 85025; 87426; 87804; 93005; 96372; 99285; J1885; Q0092

== ENCOUNTER 2022-08-20 10:56 | Emergency (ER) | payer OTHER, MEDICAID ==
[~2022-08-20] VITALS: Ht 162.6 cm; Wt 62.6 kg
[~2022-08-20 10:56] MED LIST changes: +PROM118S6 PO
[2022-08-20 10:57] VITALS: BP 143/74
[2022-08-20] MEDS ORDERED: KETOROLAC 15 MG/ML VIAL IM ONE (14:45)
[2022-08-20] MEDS ORDERED: LIDOCAINE 5% 1 EA PATCH TP SCH (14:45)
--- NOTE | 2022-08-20 15:05 | NUR ---
BLANCA WRAP TO R FOOT X 1. + CMS
[2022-08-20] MEDS ORDERED: CYCL-711 PO (15:22)
[2022-08-20] MEDS ORDERED: ACET-10509 PO (15:22)
[2022-08-20] MEDS ORDERED: NAPR-54 PO (15:22)
[2022-08-20] MEDS ORDERED: LID5T TP (15:22)
[2022-08-20] MEDS ORDERED: DICL20GE TP (15:22)
[2022-08-20 15:39] VITALS: BP 143/74
--- NOTE | 2022-08-20 15:40 | NUR ---
Patient discharged with v/s stable. Written and verbal after care instructions given and explained. Patient alert, oriented and verbalized understanding of instructions. Ambulatory with steady gait. All questions addressed prior to discharge. ID band removed. Patient advised to follow up with PMD. Rx of TYLENOL, FLEXERIL, VOLTAREN, LIDOCAIN PATCH, NAPROXEN given. Patient educated on indication of medication including possible reaction and side effects. Opportunity to ask questions provided and answered.
== END 2022-08-20 15:39 | disposition home or self-care (01) ==
LOC: MED 10:56
DX: S32.028A Other fracture of second lumbar vertebra, initial encounter for closed fracture (principal); S16.1XXA Strain of muscle, fascia and tendon at neck level, initial encounter; S39.012A Strain of muscle, fascia and tendon of lower back, initial encounter; S46.912A Strain of unspecified muscle, fascia and tendon at shoulder and upper arm level, left arm, initial encounter; S96.811A Strain of other specified muscles and tendons at ankle and foot level, right foot, initial encounter; M25.561 Pain in right knee; E11.9 Type 2 diabetes mellitus without complications; I10 Essential (primary) hypertension; Z79.4 Long term (current) use of insulin; Z79.899 Other long term (current) drug therapy; W18.30XA Fall on same level, unspecified, initial encounter; Y93.89 Activity, other specified; Y92.89 Other specified places as the place of occurrence of the external cause; Y99.8 Other external cause status
CPT/HCPCS: 72100; 73030; 73562; 73630; 96372; 99284; J1885

== ENCOUNTER 2023-02-28 10:59 | Emergency (ER) | payer OTHER, MEDICAID ==
[~2023-02-28] VITALS: Ht 154.9 cm; Wt 63.5 kg
[~2023-02-28 10:59] MED LIST changes: +DICL20GE TP; +LID5T TP; +NAPR-54 PO
[2023-02-28 11:13] VITALS: BP 134/77; PULSE 83; RESP 18; TEMP 98.4; O2SAT 99
[2023-02-28] MEDS ORDERED: KETOROLAC 30 MG/ML VIAL IM ONE (11:45)
[2023-02-28] MEDS ORDERED: LIDOCAINE 4% 1 EA PATCH TP ONE (11:45)
[2023-02-28] MEDS ORDERED: ONDANSETRON 4 MG ODT PO ONE (13:00)
[2023-02-28 14:44] LABS: APPEARANCE,URINE CLEAR (CLEAR); BILIRUBIN,URINE NEGATIVE (NEGATIVE); BLOOD, URINE NEGATIVE (NEGATIVE); COLOR,URINE YELLOW (YELLOW); LEUKOCYTE ESTERASE ,URINE NEGATIVE (NEGATIVE); NITRITE, URINE NEGATIVE (NEGATIVE); PROTEIN,URINE NEGATIVE (NEGATIVE); UGLUCOSE 3+ (NEGATIVE); UROBILINOGEN,URINE 0.2 EU/dL (0.2 - 1)
[2023-02-28 15:00] LABS: BACTERIA,URINE 2+ /HPF (None Seen); MUCUS,URINE 1+ /LPF (None Seen); RBC,URINE 0-5 /HPF (0-5); SQUAMOUS EPITHELIAL CELL,UR 4-10 (MOD) /LPF (0-3 (FEW)); TRICHOMONAS,URINE None Seen /HPF (None Seen); WBC,URINE 0-5 /HPF (0-5); YEAST,URINE None Seen /HPF (None Seen)
[2023-02-28] MEDS ORDERED: LID5T TP (15:38)
[2023-02-28] MEDS ORDERED: NAPR-54 PO (15:38)
== END 2023-02-28 15:56 | disposition home or self-care (01) ==
LOC: MED 10:59
DX: M54.50 Low back pain, unspecified (principal); M79.661 Pain in right lower leg; M79.662 Pain in left lower leg; E11.9 Type 2 diabetes mellitus without complications; I10 Essential (primary) hypertension; E78.5 Hyperlipidemia, unspecified; Z79.899 Other long term (current) drug therapy; Z79.1 Long term (current) use of non-steroidal anti-inflammatories (NSAID); Z79.2 Long term (current) use of antibiotics; Z88.6 Allergy status to analgesic agent
CPT/HCPCS: 73562; 73630; 81001; 87086; 96372; 99284; J1885; Q0162

== ENCOUNTER 2023-11-24 10:29 | Emergency (ER) | payer OTHER, MEDICAID ==
[~2023-11-24] VITALS: Ht 144.8 cm; Wt 64.6 kg
[~2023-11-24 10:29] MED LIST changes: -ACET-10509 PO; +ACET500T99 PO; -GLIP10TE PO; +GLIP10TE1 PO; +NAPR-337 PO; -NAPR-54 PO
[2023-11-24 10:35] VITALS: BP 142/66; PULSE 61; RESP 18; TEMP 97.7; O2SAT 100
--- NOTE | 2023-11-24 10:43 | NUR ---
ASSUMED PATIENT CARE, NURSING ASSESSMENT COMPLETED.
--- NOTE | 2023-11-24 10:56 | NUR ---
DR GURROLA AT BEDSIDE, MSE COMPLETED.
[2023-11-24] MEDS: NACL 0.9% 1,000 ML IV ONE (11:14)
[2023-11-24] MEDS: ONDANSETRON 4 MG/2 ML VIAL IVP ONE (11:15)
[2023-11-24 11:18] LABS: BASOPHILS % (AUTO) 1.1 % (0.0-2.0); EOSINOPHILS # (AUTO) 0.1 K/uL (0-0.4); EOSINOPHILS % (AUTO) 1.2 % (0.0-4.0); HEMATOCRIT 32.3 % (36-48); HEMOGLOBIN 10.7 g/dL (12.0-16.0); LYMPHOCYTES # (AUTO) 0.9 K/uL (2.5-16.5); LYMPHOCYTES % (AUTO) 20.1 % (20.5-51.1); MEAN CORPUSCULAR HEMOGLOBIN 34 pg (27-31); MEAN CORPUSCULAR HGB CONC 33 g/dL (33-37); MONOCYTES # (AUTO) 0.2 K/uL (0.8-1.0); MONOCYTES % (AUTO) 4.5 % (1.7-9.3); NEUTROPHILS # (AUTO) 3.4 K/uL (1.8-7.7); NEUTROPHILS % (AUTO) 73.1 % (42.2-75.2); PLATELET COUNT (AUTO) 317 K/uL (140-450); RED CELL DISTRIBUTION WIDTH 14.6 % (11.6-13.7); WHITE BLOOD COUNT (AUTO) 4.6 K/uL (4.8-10.8)
[2023-11-24 11:23] LABS: ANION GAP 15.6 (8-16); CALCIUM 9.1 mg/dL (8.5-10.1); CARBON DIOXIDE 25.1 mmol/L (21-32); CREATININE 1.2 mg/dL (0.6-1.3); POTASSIUM 3.7 mmol/L (3.5-5.1)
[2023-11-24 11:28] LABS: ALBUMIN 3.9 g/dL (3.4-5.0); BILIRUBIN,DIRECT 0.1 mg/dL (0.0-0.3); TOTAL BILIRUBIN 0.3 mg/dL (0.0-1.0); TOTAL PROTEIN, SERUM 7.4 g/dL (6.4-8.2)
[2023-11-24 12:12] LABS: APPEARANCE,URINE CLEAR (CLEAR); BILIRUBIN,URINE NEGATIVE (NEGATIVE); BLOOD, URINE NEGATIVE (NEGATIVE); COLOR,URINE YELLOW (YELLOW); LEUKOCYTE ESTERASE ,URINE NEGATIVE (NEGATIVE); NITRITE, URINE NEGATIVE (NEGATIVE); PROTEIN,URINE NEGATIVE (NEGATIVE); UGLUCOSE 3+ (NEGATIVE); UROBILINOGEN,URINE 0.2 EU/dL (0.2 - 1)
[2023-11-24] MEDS ORDERED: ONDA8TAB87 PO (12:18)
[2023-11-24] MEDS ORDERED: IBUP-2213 PO (12:18)
[2023-11-24 12:37] VITALS: BP 142/66; PULSE 61; RESP 18; TEMP 97.7; O2SAT 100
--- NOTE | 2023-11-24 12:38 | NUR ---
Patient discharged with v/s stable. Written and verbal after care instructions given and explained. Patient alert, oriented and verbalized understanding of instructions. Ambulatory with steady gait. All questions addressed prior to discharge. ID band removed. Patient advised to follow up with PMD. Rx of MOTRIN, ZOFRAN given. Patient educated on indication of medication including possible reaction and side effects. Opportunity to ask questions provided and answered.
[2023-11-25] MEDS ORDERED: ONDA-188 SL (23:01)
[2023-11-25] MEDS ORDERED: BEN10 PO (23:01)
== END 2023-11-24 12:38 | disposition home or self-care (01) ==
LOC: MED 10:29
DX: E11.649 Type 2 diabetes mellitus with hypoglycemia without coma (principal); I10 Essential (primary) hypertension; Z79.899 Other long term (current) drug therapy; Z88.6 Allergy status to analgesic agent
CPT/HCPCS: 36415; 71045; 80048; 80076; 81003; 82948; 83690; 85025; 96361; 96374; 99284; J2405; J7030; Q0092

== ENCOUNTER 2023-11-25 19:11 | Emergency (ER) | payer OTHER, MEDICAID ==
[~2023-11-25] VITALS: Ht 157.5 cm; Wt 67.1 kg
[~2023-11-25 19:11] MED LIST changes: +IBUP-2213 PO; +ONDA8TAB87 PO
[2023-11-25 19:27] VITALS: BP 117/67; PULSE 56; RESP 16; TEMP 97.2; O2SAT 98
[2023-11-25 21:01] LABS: BASOPHILS # (AUTO) 0.1 K/uL (0.00-0.22); BASOPHILS % (AUTO) 1.1 % (0.0-2.0); EOSINOPHILS # (AUTO) 0.2 K/uL (0-0.4); EOSINOPHILS % (AUTO) 3.4 % (0.0-4.0); HEMATOCRIT 30.6 % (36-48); HEMOGLOBIN 10.1 g/dL (12.0-16.0); LYMPHOCYTES # (AUTO) 1.6 K/uL (2.5-16.5); LYMPHOCYTES % (AUTO) 26.3 % (20.5-51.1); MEAN CORPUSCULAR HEMOGLOBIN 33 pg (27-31); MEAN CORPUSCULAR HGB CONC 33 g/dL (33-37); MEAN CORPUSCULAR VOLUME 100.7 fL (80-94); MONOCYTES # (AUTO) 0.5 K/uL (0.8-1.0); MONOCYTES % (AUTO) 8.2 % (1.7-9.3); NEUTROPHILS # (AUTO) 3.6 K/uL (1.8-7.7); PLATELET COUNT (AUTO) 273 K/uL (140-450); RED BLOOD CELL COUNT(AUTO) 3.04 MIL/uL (4.20-5.40); RED CELL DISTRIBUTION WIDTH 14.9 % (11.6-13.7)
[2023-11-25 21:03] LABS: FLU A ANTIGEN negative (NEGATIVE); FLU B ANTIGEN NEGATIVE (NEGATIVE)
[2023-11-25] MEDS ORDERED: ONDANSETRON 4 MG/2 ML VIAL ONE (21:15)
[2023-11-25] MEDS: NACL 0.9% 1,000 ML IV ONE (21:20)
[2023-11-25] MEDS: ONDANSETRON 4 MG/2 ML VIAL IVP ONE (21:21)
[2023-11-25 21:23] LABS: ALANINE AMINOTRANSFERASE 17 U/L (12-78); ALKALINE PHOSPHATASE 35 U/L (50-136); ASPARTATE AMINOTRANSFERASE 19 U/L (15-37); BILIRUBIN,DIRECT 0.1 mg/dL (0.0-0.3); CREATINE KINASE, TOTAL 106 U/L (26-192); LIPASE 86 U/L (16-77); THYROID STIMULATING HORMONE 3.02 uIU/mL (0.34-3.74); TOTAL BILIRUBIN 0.4 mg/dL (0.0-1.0); TOTAL PROTEIN, SERUM 7.3 g/dL (6.4-8.2)
[2023-11-25 21:46] LABS: ANION GAP 12.2 (8-16); CARBON DIOXIDE 26.6 mmol/L (21-32); POTASSIUM 3.8 mmol/L (3.5-5.1)
[2023-11-25 22:25] LABS: APPEARANCE,URINE CLEAR (CLEAR); BILIRUBIN,URINE NEGATIVE (NEGATIVE); BLOOD, URINE NEGATIVE (NEGATIVE); COLOR,URINE YELLOW (YELLOW); LEUKOCYTE ESTERASE ,URINE NEGATIVE (NEGATIVE); NITRITE, URINE NEGATIVE (NEGATIVE); PROTEIN,URINE NEGATIVE (NEGATIVE); UGLUCOSE 2+ (NEGATIVE); UROBILINOGEN,URINE 0.2 EU/dL (0.2 - 1)
[2023-11-25] MEDS ORDERED: BEN10 PO (23:01)
[2023-11-25] MEDS ORDERED: ONDA-188 SL (23:01)
[2023-11-25 23:20] VITALS: BP 161/69; PULSE 58; RESP 20; TEMP 98.1; O2SAT 99
== END 2023-11-25 23:20 | disposition home or self-care (01) ==
LOC: MED 19:11
DX: A08.4 Viral intestinal infection, unspecified (principal); Z20.822 Contact with and (suspected) exposure to COVID-19; E11.9 Type 2 diabetes mellitus without complications; I10 Essential (primary) hypertension; Z79.899 Other long term (current) drug therapy; Z88.6 Allergy status to analgesic agent
CPT/HCPCS: 36415; 71045; 74176; 80048; 80076; 81003; 82550; 83690; 83880; 84443; 84484; 85025; 87426; 87804; 93005; 96361; 96374; 99285; J2405; J7030